=== PATIENT | female | born 1975 | race Caucasian/White ===

== ENCOUNTER 2019-11-21 14:04 | Outpatient (CLI) | payer BC, SELFPAY ==
--- NOTE | ~2019-11-21 | US_ITS ---
US thyroid INDICATION: History of papillary adenocarcinoma the thyroid gland TECHNIQUE: Real-time sonographic images of the thyroid gland were obtained. COMPARISON: Her son dated 07/07/2018 FINDINGS: There is residual thyroid tissue in the left thyroid bed measuring 2.3 x 0.6 x 0.9 cm. Ther e is a small hypoechoic mass in the left lobe measuring 1 mm, likely benign. There is normal echotext ure and echogenicity throughout the thyroid gland. No discrete nodules identified. Normal vascular f low is present. IMPRESSION: 1. Residual left thyroid tissue with 1 mm hypoechoic mass, likely of no clinical significance. Reviewed, dictated and finalized at location A. IMPRESSION: 1. Residual left thyroid tissue with 1 mm hypoechoic mass, likely of no clinic al significance.
== END 2019-11-21 14:05 | disposition home or self-care (01) ==
PROVIDERS: PCP Family Medicine; Visit Provider Internal Medicine Endocrinology, Diabetes & Metabolism
DX: Z12.31 Encounter for screening mammogram for malignant neoplasm of breast (principal); Z85.850 Personal history of malignant neoplasm of thyroid
CPT/HCPCS: 76536

== ENCOUNTER 2019-12-05 08:28 | Outpatient (CLI) | payer BC, SELFPAY ==
--- NOTE | ~2019-12-05 | MM_ITS ---
EXAMINATION: MM screening marlys BI w wilfredo HISTORY: Screening mammogram TECHNIQUE: Craniocaudal and mediolateral oblique 3-D tomosynthesis images were obtained and synthetic 2-D images were generated. CAD analysis was submitted and interpreted. COMPARISON: 09/24/2017 BREAST PARENCHYMAL COMPOSITION: There are scattered areas of fibroglandular density. FINDINGS: There is no evidence of suspicious mass, calcification, or architectural distortion to sugg est malignancy in either breast. There has been no suspicious interval change. IMPRESSION: 1. No mammographic evidence of malignancy. 2. Recommend routine screening mammography in one year. BI-RADS Category 1: Negative Reviewed, dictated and finalized at location A.
== END 2019-12-05 08:29 | disposition home or self-care (01) ==
PROVIDERS: PCP Family Medicine; Visit Provider Nurse Practitioner
DX: Z12.31 Encounter for screening mammogram for malignant neoplasm of breast (principal)
CPT/HCPCS: 77063; 77067

== ENCOUNTER 2020-11-02 09:49 | Outpatient (CLI) | payer BC, SELFPAY ==
--- NOTE | ~2020-11-02 | US_ITS ---
US soft tissue head and neck 11/02/2020 10:38 Indication: Generalized lymph node enlargement. Procedure: High-resolution ultrasound of the head and neck Comparison: Ultrasound dated 11/21/2019 Findings: There are multiple lymph nodes in of the neck, most of which retain their normal fatty hilu m. Largest mass on the right measures 2 x 1.8 x 0.6 cm without a normal fatty hilum, possibly patholo gic lymph node. There are multiple normal-appearing left neck lymph nodes with normal fatty hilum. Th ere is an abnormal mass in the left neck with partial effacement of the fatty hilum measuring 2 cm ma ximum dimension. There is another pathologic appearing mass measuring 1.6 cm maximum dimension with c omplete effacement of the fatty hilum. Impression: 1: Cervical lymphadenopathy, a few of the lymph nodes having abnormal appearance with effacement of t he fatty hilum. Recommend further evaluation with contrast-enhanced CT neck. Reviewed, dictated and finalized at location B. Impression: 1: Cervical lymphadenopathy, a few of the lymph nodes having abnormal appearanc e with effacement of the fatty hilum. Recommend further evaluation with contras t-enhanced CT neck.
== END 2020-11-02 09:50 | disposition home or self-care (01) ==
LOC: ANHIMG 09:52
PROVIDERS: PCP Family Medicine; Visit Provider Physician Assistant Medical
DX: R59.1 Generalized enlarged lymph nodes (principal)
CPT/HCPCS: 76536

== ENCOUNTER 2020-11-08 13:39 | Outpatient (CLI) | payer BC, SELFPAY ==
--- NOTE | ~2020-11-08 | CT_ITS ---
EXAMINATION: CT soft tissue neck w con DATE: 11/08/2020 14:39 INDICATION: Generalized enlarged lymph nodes. TECHNIQUE: Computed tomography (CT) of the neck was performed with 75 mL Omnipaque-350 intravenous co ntrast. Automated exposure control and iterative reconstruction technique were employed. The dose-ijeoma gth product was 563.00 mGy-cm. COMPARISON: Ultrasound 11/02/2020 FINDINGS: The visualized portions of the lung apices demonstrate a 4 mm nodule in right upper lobe, l ikely benign. There is a mucous retention cyst in left maxillary sinus. There are no pathologically e nlarged lymph nodes. There is mild cervical spondylosis. IMPRESSION: 1. No lymphadenopathy. Reviewed, dictated and finalized at location A. IMPRESSION: 1. No lymphadenopathy.
[2020-11-08 14:26] LABS: Estimated Glomerular Filt Rate > 60
== END 2020-11-08 13:40 | disposition home or self-care (01) ==
PROVIDERS: PCP Family Medicine; Visit Provider Physician Assistant Medical
DX: C73 Malignant neoplasm of thyroid gland (principal); R59.1 Generalized enlarged lymph nodes
CPT/HCPCS: 70491; Q9967

== ENCOUNTER 2021-03-10 01:08 | Day surgery (SDC) | payer BC, SELFPAY ==
[2021-02-20 11:21] VITALS: BMI 31.6
--- NOTE | 2021-03-07 15:38 | PM.HPGS ---
History of Present Illness History of Present Illness Consent: Risks, benefits, and alternatives have been discussed and questions answered. Patient agrees to proceed with procedure. Chief complaint: neoplasm screening Narrative: Quita Mtz is a 45 year old female was referred for colon cancer screening. Review of Systems Review of Systems: All systems reviewed & are unremarkable except as noted in HPI and below PMFSH Past Medical History Medical History BMI 29.0-29.9,adult Family History Family History Mother Family history of thyroid disease Hypertension Father Family history of mental disorder Family history of heart disease in male family member before age 55 Depression Family history of migraine headaches Hypertension Asthma Family history of chronic obstructive pulmonary disease Family history of coronary artery disease Family history of atrial fibrillation Family history of congestive heart failure Other Cerebrovascular accident Diabetes mellitus Social History Social History Smoking status: Never smoker Second hand tobacco smoke exposure: No Alcohol intake: former Substance use: never Substance use type: does not use Living arrangements: with family Spiritual care concerns: No Meds Home Medications and Allergies Home Medications Medication Instructions Recorded Confirmed Type lisinopril 5 mg tablet 5 mg PO DAILY #90 tablet 02/20/20 03/10/21 Rx buspirone 10 mg tablet 10 mg PO BID #180 tablet 03/19/20 03/10/21 Rx bupropion HCl 200 mg tablet,12 hr See Rx Instructions .ROUTE 01/13/21 03/10/21 Rx sustained-release .COMPLEX #180 each fluoxetine 20 mg capsule See Rx Instructions .ROUTE 01/13/21 03/10/21 Rx .COMPLEX #90 cap cholecalciferol (vitamin D3) 150 mcg PO DAILY 02/20/21 03/10/21 History [Vitamin D3] cyanocobalamin (vitamin B-12) 1,000 mcg SUBLINGUAL DAILY 02/20/21 03/10/21 History [Vitamin B-12] levothyroxine [Tirosint] 175 mcg PO DAILY 02/20/21 03/10/21 History Allergies Allergy/AdvReac Type Severity Reaction Status Date / Time Penicillins Allergy Severe Rash Verified 03/10/21 10:16 Exam Const: General: alert Orientation/consciousness: patient oriented x3 Resp: Auscultation: clear to auscultation bilaterally Cardio: Rhythm: regular rhythm GI: GI Palp: Yes Soft to palpation and No Tenderness to palpation present (GI) Neuro: General: patient oriented x3 Assessment and Plan Assessment and plan (1) Colon cancer screening: Code(s): Z12.11 - Encounter for screening for malignant neoplasm of colon Status: Acute Assessment and Plan: Colonoscopy with possible biopsy or polypectomy or cautery or injection of substances.
[2021-03-10 10:17] VITALS: BP 134/79; PULSE 116; RESP 18; TEMP 37.1; O2SAT 97; BMI 31.5
[2021-03-10] MEDS: LACTATED RINGERS 1,000 ML 150 ML IV CONT (10:20)
--- NOTE | 2021-03-10 11:13 | WPDANESEPPF ---
Anes - Initial Pre Proc Eval Procedure: Operation Date: 03/10/21 11:15 Proposed Procedures p Screening Colonoscopy - Don Mukherjee MD Date/Time: 03/10/21 11:13 Surgeon: Don Mukherjee MD Pre Op Diagnosis: neoplasm screening Patient Data Age: 45 Gender: F Height: 1.65 m Weight: 86 kg Last Vital Signs Temp 98.7 F 03/10/21 10:17 Pulse 116 H 03/10/21 10:17 Resp 18 03/10/21 10:17 BP 134/79 03/10/21 10:17 Pulse Ox 97 03/10/21 10:17 Allergies Allergy/AdvReac Type Severity Reaction Status Date / Time Penicillins Allergy Severe Rash Verified 03/10/21 10:16 Home Medications Medication Instructions Recorded Confirmed Type lisinopril 5 mg tablet 5 mg PO DAILY #90 tablet 02/20/20 03/10/21 Rx buspirone 10 mg tablet 10 mg PO BID #180 tablet 03/19/20 03/10/21 Rx bupropion HCl 200 mg tablet,12 hr See Rx Instructions .ROUTE 01/13/21 03/10/21 Rx sustained-release .COMPLEX #180 each fluoxetine 20 mg capsule See Rx Instructions .ROUTE 01/13/21 03/10/21 Rx .COMPLEX #90 cap cholecalciferol (vitamin D3) 150 mcg PO DAILY 02/20/21 03/10/21 History [Vitamin D3] cyanocobalamin (vitamin B-12) 1,000 mcg SUBLINGUAL DAILY 02/20/21 03/10/21 History [Vitamin B-12] levothyroxine [Tirosint] 175 mcg PO DAILY 02/20/21 03/10/21 History Patient hx anesthesia problems: none Family hx anesthesia problems: none Results Review: All pre-operative results and documents have been reviewed as part of the pre-operative evaluation. [facility] Past Medical History Medical History BMI 29.0-29.9,adult Family History Family History Mother Family history of thyroid disease Hypertension Father Family history of mental disorder Family history of heart disease in male family member before age 55 Depression Family history of migraine headaches Hypertension Asthma Family history of chronic obstructive pulmonary disease Family history of coronary artery disease Family history of atrial fibrillation Family history of congestive heart failure Other Cerebrovascular accident Diabetes mellitus Social History Social History Smoking status: Never smoker Second hand tobacco smoke exposure: No Alcohol intake: former Substance use: never Substance use type: does not use Living arrangements: with family Spiritual care concerns: No Anes - Eval Final PreProcedure Day of Procedure 03/10/21 11:13 Patient weight: obese Heart: regular rate and rhythm Lungs: clear to auscultation Airway: Mallampati scale class II Neurological: alert and oriented Last oral intake: >/= 8 hours ASA classification: III Emergent: no Anesthetic plan: proceed Anesthesia type and monitoring: general GIVS and standard monitoring Results Review: All pre-operative results and documents have been reviewed as part of the pre-operative evaluation. Informed Consent: The patient's anesthetic plan and its attendant risks and benefits were discussed with the patient/family/POA. Questions were solicited and answers provided to the satisfaction of the patient/family/POA.
[2021-03-10 11:40] VITALS: BP 120/65; PULSE 92; RESP 18; O2SAT 94
[2021-03-10 11:50] VITALS: BP 111/67; PULSE 91; RESP 21; O2SAT 96
[2021-03-10 12:00] VITALS: BP 112/78; PULSE 86; RESP 16; O2SAT 97
== END 2021-03-10 12:07 | disposition home or self-care (01) ==
PROVIDERS: PCP Family Medicine; Referring Provider Obstetrics & Gynecology Gynecology; Visit Provider Internal Medicine Gastroenterology
PROC: 0DJD8ZZ Inspection of Lower Intestinal Tract, Via Natural or Artificial Opening Endoscopic (ICD-10-PCS; CPT 45378; principal; 2021-03-10 11:15)
DX: Z12.11 Encounter for screening for malignant neoplasm of colon (principal); E66.9 Obesity, unspecified; Z68.31 Body mass index [BMI] 31.0-31.9, adult
CPT/HCPCS: 45378; J2001; J2704; J7120

== ENCOUNTER 2021-05-24 10:33 | Outpatient (CLI) | payer BC, SELFPAY ==
--- NOTE | ~2021-05-24 | MM_ITS ---
EXAMINATION: MM screening marlys BI w wilfredo HISTORY: Screening TECHNIQUE: Craniocaudal and mediolateral oblique 3-D tomosynthesis images were obtained and synthetic 2-D images were generated. CAD analysis was submitted and interpreted. COMPARISON: Comparison to multiple prior studies sequentially, with oldest reviewed study dated 09/24. BREAST PARENCHYMAL COMPOSITION: There are scattered areas of fibroglandular density. FINDINGS: There is no evidence of suspicious mass, calcification, or architectural distortion to sugg est malignancy in either breast. There has been no suspicious interval change. IMPRESSION: 1. No mammographic evidence of malignancy. 2. Recommend routine screening mammography in one year. BI-RADS Category 1: Negative Reviewed, dictated and finalized at location A. FIER
== END 2021-05-24 10:34 | disposition home or self-care (01) ==
LOC: ANHIMG 10:34
PROVIDERS: PCP Family Medicine; Visit Provider Nurse Practitioner
DX: Z12.31 Encounter for screening mammogram for malignant neoplasm of breast (principal)
CPT/HCPCS: 77063; 77067

== ENCOUNTER 2021-06-13 17:52 | Emergency (ER) | payer BC, SELFPAY ==
[2021-06-13 17:58] VITALS: BP 129/77; PULSE 93; RESP 16; TEMP 36.8; O2SAT 100
--- NOTE | 2021-06-13 18:12 | ED.FEMALEGU ---
HPI - Female Genitourinary General Chief complaint: Urogenital-Female Stated complaint: uti Time Seen by Provider: 06/13/21 18:05 Source: patient, RN notes reviewed and old records reviewed Mode of arrival: ambulatory Limitations: no limitations History of Present Illness HPI Narrative: 45 [facility] complaints of burning with urination, pressure in perineal region, feels like she can't fully empty her bladder since Wednesday with some right mid abdomen/side discomfort also. Patient denies any fevers, chills or sweats, no nausea or vomiting or any diarrhea. Patient denies any flank pain or any pain in her right lower abdominal area. Patient reports that she has not taken any AZO for her symptoms of burning, has taken Ibuprofen for her discomfort. Patient denies any vaginal discharge or itching, denies any concern for exposure to STD's, has noted some blood on tissue after urination. MD elicited complaint: dysuria Related Data Home Medications Medication Instructions Recorded Confirmed levothyroxine [Tirosint] 175 mcg PO DAILY 02/20/21 06/13/21 ferrous sulfate [FeroSul] 325 mg PO DAILY 06/13/21 06/13/21 levonorgestrel [Mirena] See Rx Instructions .ROUTE .COMPLEX 06/13/21 06/13/21 Allergies Allergy/AdvReac Type Severity Reaction Status Date / Time Penicillins Allergy Severe Rash Verified 06/13/21 08:18 Review of Systems Review of Systems: CONSTITUTIONAL: Denies fever, chills, or sweats. EYES: Denies visual changes, redness, or discharge. ENT: Denies rhinorrhea, congestion, sore throat, or otalgia. CARDIOVASCULAR: Denies chest pain, palpitations, or edema. RESPIRATORY: Denies cough or dyspnea. GASTROINTESTINAL: Reports right mid abdomen/side pain , no nausea, vomiting, or diarrhea. GENITOURINARY: Positive for dysuria or hematuria. SKIN: Denies rash or itching. MUSCULOSKELETAL: Denies back pain, joint pain, or myalgia. NEUROLOGIC: Denies headache, numbness, or weakness. PSYCHIATRIC: Positive for history of anxiety or depression. All systems reviewed & are unremarkable except as noted in HPI and below PMFSH Past Medical History Medical History (Updated 06/13/21 @ 18:48 by Virginia Oneill NP) Anxiety and depression BMI 29.0-29.9,adult BMI 30.0-30.9,adult Essential hypertension Family history of GERD Postoperative hypothyroidism Surgical History Surgical History (Updated 06/13/21 @ 18:39 by Virginia Oneill NP) H/O total thyroidectomy for cancer with radiation therapy Family History Family History Mother Family history of thyroid disease Hypertension Father Family history of mental disorder Family history of heart disease in male family member before age 55 Depression Family history of migraine headaches Hypertension Asthma Family history of chronic obstructive pulmonary disease Family history of coronary artery disease Family history of atrial fibrillation Family history of congestive heart failure Other Cerebrovascular accident Diabetes mellitus Social History Social History Second hand tobacco smoke exposure: No Alcohol intake: former Substance use: never Substance use type: does not use Spiritual care concerns: No Comments At time of signature, agree with nursing past medical, surgical, social and family history. There is no relevant family history pertinent to the presenting complaint Exam Narrative: GENERAL: Well-appearing, well-nourished, and in no acute distress. HEAD: Normocephalic, atraumatic. EYES: PERRLA and EOMI. ENT: Nares clear, no rhinorrhea or epistaxis. Mucous membranes moist.TM's normal throat pink with no lesions or exudates no tonsil enlargement. NECK: Supple. no lymphadenopathy CHEST: Clear to auscultation. No respiratory distress. no cough or tachypnea, SAO2 100% on room air HEART: Regular rate and rhythm. No mur
== END 2021-06-13 18:26 | disposition home or self-care (01) ==
PROVIDERS: Emergency Provider Registered Nurse; PCP Family Medicine
DX: N39.0 Urinary tract infection, site not specified (principal); I10 Essential (primary) hypertension; E89.0 Postprocedural hypothyroidism; Z85.850 Personal history of malignant neoplasm of thyroid; Z92.3 Personal history of irradiation; F41.9 Anxiety disorder, unspecified; F32.A Depression, unspecified
CPT/HCPCS: 81003; 87077; 87086; 87186; 99213; G0463

== ENCOUNTER 2021-09-02 17:46 | Emergency (ER) | payer BC, SELFPAY ==
--- NOTE | 2021-09-02 17:48 | ED.FEMALEGU ---
HPI - Female Genitourinary General Chief complaint: Urogenital-Female Stated complaint: uti complaint Time Seen by Provider: 09/02/21 18:03 Source: patient and RN notes reviewed Mode of arrival: ambulatory Limitations: no limitations History of Present Illness HPI Narrative: 46-year-old female presents with concern for dysuria, frequency, urgency since yesterday. She denies flank pain, hematuria, abdominal pain, nausea, vomiting, general malaise, fever. She reports she had a urinary tract infection in May, otherwise she typically does not get them. She reports she was treated with Macrobid and it worked well for her infection. She reports she took ibuprofen without relief MD elicited complaint: UTI Related Data Home Medications Medication Instructions Recorded Confirmed bupropion HCl 200 mg PO BID 09/02/21 09/02/21 buspirone 10 mg PO TID 09/02/21 09/02/21 fluoxetine 20 mg PO DAILY 09/02/21 09/02/21 levonorgestrel [Mirena] 1 device INTRAUTERINE ONCE 09/02/21 09/02/21 levothyroxine [Unithroid] 175 mcg PO DAILY 09/02/21 09/02/21 Allergies Allergy/AdvReac Type Severity Reaction Status Date / Time Penicillins Allergy Severe Rash Verified 09/02/21 18:02 Review of Systems Review of Systems: CONSTITUTIONAL: Denies malaise, chills, sweats, or fever. CARDIOVASCULAR: Denies chest pain, palpitations, or edema. RESPIRATORY: Denies cough or dyspnea. GASTROINTESTINAL: Denies abdominal pain, nausea, vomiting, diarrhea GENITOURINARY: Reports dysuria, frequency, urgency. Denies suprapubic pressure. Denies flank pain or hematuria. SKIN: Denies rash or itching. MUSCULOSKELETAL: Denies back pain or myalgia. All systems reviewed & are unremarkable except as noted in HPI and below PMFSH Past Medical History Medical History Anxiety and depression BMI 29.0-29.9,adult BMI 30.0-30.9,adult Essential hypertension Family history of GERD Postoperative hypothyroidism Surgical History Surgical History H/O total thyroidectomy for cancer with radiation therapy Family History Family History Mother Family history of thyroid disease Hypertension Diabetes mellitus Father Family history of mental disorder Family history of heart disease in male family member before age 55 Malignant neoplasm of prostate Depression Family history of migraine headaches Hypertension Asthma Family history of chronic obstructive pulmonary disease Family history of coronary artery disease Family history of atrial fibrillation Family history of congestive heart failure Sibling Psoriasis Other Cerebrovascular accident Social History Social History Second hand tobacco smoke exposure: No Alcohol intake: former Substance use: never Substance use type: does not use 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 There is no relevant family history pertinent to the presenting complaint Exam Narrative: GENERAL: Well-appearing, well-nourished, and in no acute distress. HEAD: Normocephalic. EYES: PERRLA, conjunctivae clear. NECK: Supple. No lymphadenopathy CHEST: Clear to auscultation. No respiratory distress. HEART: Regular rate and rhythm. ABDOMEN: Soft, nontender upon palpation, nondistended, normal active bowel sounds, no palpable or pulsatile masses, no guarding. No CVA tenderness SKIN: Warm, dry, no rash. NEURO: Alert and oriented x3. PSYCH: Normal mood and affect Course Course Emergency Course: Patient is aware of diagnosis, understands and agrees to treatment plan. Anticipatory guidance given.
[2021-09-02 17:57] VITALS: BP 123/71; PULSE 84; RESP 18; TEMP 36.8; O2SAT 100
== END 2021-09-02 18:20 | disposition home or self-care (01) ==
PROVIDERS: Emergency Provider Nurse Practitioner; PCP Family Medicine
DX: N30.01 Acute cystitis with hematuria (principal); I10 Essential (primary) hypertension; E89.0 Postprocedural hypothyroidism; Z85.850 Personal history of malignant neoplasm of thyroid; Z92.3 Personal history of irradiation; F41.9 Anxiety disorder, unspecified; F32.A Depression, unspecified
CPT/HCPCS: 81003; 87077; 87086; 87088; 87186; 99213; G0463

== ENCOUNTER 2021-11-20 19:11 | Emergency (ER) | payer BC, SELFPAY ==
[2021-11-20 19:30] VITALS: BP 122/75; PULSE 87; RESP 18; TEMP 37.1; O2SAT 100
--- NOTE | 2021-11-20 19:45 | ED.URI ---
HPI - URI/Sore Throat General Chief Complaint: Upper Respiratory Infection Stated Complaint: congestion,cheek and jaw pain Time Seen by Provider: 11/20/21 19:45 Source: patient, RN notes reviewed and old records reviewed Mode of arrival: ambulatory Limitations: no limitations History of Present Illness HPI Narrative: 46 year old female who presents to [facility] care with complaints of sinus drainage starting on Wednesday which was yellow, then head congestion started to get worse on Wednesday with pain to left ear with muffled hearing. Patient reports that she also has had sinus pain and pressure to the left side of her face and her teeth even hurts. Patient reports that she has had fatigue and body aches.Patient reports that she has been taking Ibuprofen for her discomfort. Patient reports that she has had covid vaccinations and also flu shot. MD elicited complaint: rhinorrhea, nasal congestion, sinus pain and other (ear fullness) Pain scale (0-10): 4 Treatments prior to arrival: ibuprofen Related Data Home Medications Medication Instructions Recorded Confirmed levonorgestrel 20 mcg/24 hours (7 1 device intrauterine ONCE 09/02/21 11/20/21 yrs) 52 mg intrauterine device (Mirena) ferrous sulfate 325 mg (65 mg 325 mg PO DAILY 10/22/21 11/20/21 iron) tablet (Feosol) lisinopril 5 mg tablet 5 mg PO DAILY 10/22/21 11/20/21 Allergies Allergy/AdvReac Type Severity Reaction Status Date / Time Penicillins Allergy Severe Rash Verified 10/22/21 09:26 Review of Systems Review of Systems: CONSTITUTIONAL: Denies fever, chills, or sweats. EYES: Denies visual changes, redness, or discharge. ENT: Positive for rhinorrhea, congestion, no sore throat, left ear fullness and muffled hearing CARDIOVASCULAR: Denies chest pain, palpitations, or edema. RESPIRATORY: Denies cough or dyspnea. GASTROINTESTINAL: Denies abdominal pain, nausea, vomiting, or diarrhea. GENITOURINARY: Denies dysuria or hematuria. SKIN: Denies rash or itching. MUSCULOSKELETAL: Denies back pain, joint pain,body aches NEUROLOGIC: Denies headache, numbness, or weakness. PSYCHIATRIC: Positive for history of anxiety or depression. [facility] Past Medical History Medical History Anxiety and depression BMI 29.0-29.9,adult BMI 30.0-30.9,adult BMI 31.0-31.9,adult Essential hypertension Family history of GERD Postoperative hypothyroidism Surgical History Surgical History H/O total thyroidectomy for cancer with radiation therapy Family History Family History Mother Family history of thyroid disease Hypertension Diabetes mellitus Father Family history of mental disorder Depression Family history of migraine headaches Hypertension Asthma Family history of chronic obstructive pulmonary disease Family history of coronary artery disease Family history of atrial fibrillation Family history of congestive heart failure Family history of heart disease in male family member before age 55 Malignant neoplasm of prostate Sibling Psoriasis Other Cerebrovascular accident Social History Social History Smoking status: Never smoker Second hand tobacco smoke exposure: No Alcohol intake: former Substance use: never Substance use type: does not use 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 There is no relevant family history pertinent to the presenting complaint Exam Narrative: GENERAL: Well-appearing, well-nourished, and in no acute distress. HEAD: Normocephalic, atraumatic. EYES: PERRLA and EOMI. ENT: Nares with
--- NOTE | 2021-11-20 20:32 | ED.URI ---
HPI - URI/Sore Throat General Chief Complaint: Upper Respiratory Infection Stated Complaint: congestion,cheek and jaw pain Time Seen by Provider: 11/20/21 19:45 Source: patient, RN notes reviewed and old records reviewed Mode of arrival: ambulatory Limitations: no limitations History of Present Illness Treatments prior to arrival: ibuprofen Related Data Home Medications Medication Instructions Recorded Confirmed levonorgestrel 20 mcg/24 hours (7 1 device intrauterine ONCE 09/02/21 11/20/21 yrs) 52 mg intrauterine device (Mirena) ferrous sulfate 325 mg (65 mg 325 mg PO DAILY 10/22/21 11/20/21 iron) tablet (Feosol) lisinopril 5 mg tablet 5 mg PO DAILY 10/22/21 11/20/21 Allergies Allergy/AdvReac Type Severity Reaction Status Date / Time Penicillins Allergy Severe Rash Verified 10/22/21 09:26 [facility] Past Medical History Medical History Anxiety and depression BMI 29.0-29.9,adult BMI 30.0-30.9,adult BMI 31.0-31.9,adult Essential hypertension Family history of GERD Postoperative hypothyroidism Surgical History Surgical History H/O total thyroidectomy for cancer with radiation therapy Family History Family History Mother Family history of thyroid disease Hypertension Diabetes mellitus Father Family history of mental disorder Depression Family history of migraine headaches Hypertension Asthma Family history of chronic obstructive pulmonary disease Family history of coronary artery disease Family history of atrial fibrillation Family history of congestive heart failure Family history of heart disease in male family member before age 55 Malignant neoplasm of prostate Sibling Psoriasis Other Cerebrovascular accident Social History Social History Smoking status: Never smoker Second hand tobacco smoke exposure: No Alcohol intake: former Substance use: never Substance use type: does not use 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 Gender identity (if verbalized by the patient): Female Spiritual care concerns: No Course Vital Signs Vital signs: Vital Signs Temperature 37.1 C 11/20/21 19:30 Pulse Rate 87 07/07/22 19:30 Respiratory Rate 18 11/20/21 19:30 Blood Pressure 122/75 11/20/21 19:30 Pulse Oximetry 100 11/20/21 19:30 Oxygen Delivery Room Air 11/20/21 19:30 Temperature 37.1 C 11/20/21 19:30 Pulse Rate 87 11/20/21 19:30 Respiratory Rate 18 11/20/21 19:30 Blood Pressure 122/75 11/20/21 19:30 Pulse Oximetry 100 11/20/21 19:30 Oxygen Delivery Room Air 11/20/21 19:30 Discharge Plan Discharge Clinical Impression: Bacterial sinusitis Patient Disposition: Home, Self-Care Condition: Stable Instructions: Antibiotic Form, Sinusitis (ED) Additional Instructions: Increase fluids especially juices and water Zizs-ezk-qoshgxh cough and cold medicine of your choice for your symptoms Zyrtec Claritin or Blanche daily include Coricidin brand decongestant Tylenol ibuprofen for any fever pain heat to the face 20-30 minutes 4-6 times a day for pain Salt water gargles, throat lozenges or throat sprays as desired Antibiotic as directed--finished the medication If your symptoms persist, change or worsen significantly before you can contact your personal physician then please, without delay, go to the emergency department for further evaluation. Follow-up with PCP in 7-10 days or sooner if needed Prescriptions: New azithromycin 250 mg tablet See Rx Instructions .ROUTE .COMPLEX Qty: 6 0RF Rx Instructions: For 250 mg dose pack: take 500 mg today (day 1), then 250 mg for 4 days (days 2-5) No Action Mirena 20 mcg/24 hours (7 yrs) 52 mg Intrauterine Device
== END 2021-11-20 20:04 | disposition home or self-care (01) ==
PROVIDERS: Emergency Provider Registered Nurse; PCP Family Medicine
DX: J32.9 Chronic sinusitis, unspecified (principal); B96.89 Other specified bacterial agents as the cause of diseases classified elsewhere; I10 Essential (primary) hypertension
CPT/HCPCS: 99213; G0463

== ENCOUNTER 2023-01-25 08:50 | Outpatient (CLI) | payer BC, SELFPAY ==
[2023-01-25 09:21] LABS: Basophils Absolute Auto 0.1 K/mm3 (0.0-0.1); Basophils Percent Auto 0.6 % (0.2-1.2); Eosinophils Absolute Auto 0.3 K/mm3 (0-0.3); Eosinophils Percent Auto 3.4 % (0-4.4); Hematocrit 41.1 % (37.0-47.0); Hemoglobin 13.3 g/dL (12.0-15.0); Immature Granulocyte Absolute 0.05 K/mm3 (0.00-0.031); Immature Granulocyte Percent A 0.6 % (0-0.5); Lymphocytes Percent Auto 17.2 % (18.3-44.2); Mean Corpuscular HGB Conc 32.4 g/dl (32-36); Mean Corpuscular Hemoglobin 30.4 pg (26-34); Mean Corpuscular Volume 93.8 fl (80-100); Mean Platelet Volume 10.2 fl (7.4-10.4); Monocytes Absolute Auto 0.7 K/mm3 (0.1-0.6); Monocytes Percent Auto 8.4 % (2.6-8.5); Neutrophils Absolute Auto 5.7 K/mm3 (1.3-6.7); Neutrophils Percent Auto 69.8 % (45.5-73.1); Platelet Count Result 249 k/mm3 (150-375); Red Blood Count 4.38 M/mm3 (4.2-5.4); Red Cell Distribution Width 12.1 % (11.5-14.5); White Blood Count 8.1 K/mm3 (4.5-10.0)
[2023-01-25 09:31] LABS: Anion Gap 6 mmol/L (8-16); Blood Urea Nitrogen 12 mg/dL (7-17); Calcium 9.6 mg/dL (8.4-10.2); Carbon Dioxide 29 mmol/L (22-30); Chloride 105 mmol/L (98-107); Estimated Glomerular Filt Rate > 60; Glucose 84 mg/dL (65-110); Sodium 140 mmol/L (137-145)
== END 2023-01-25 08:51 | disposition home or self-care (01) ==
PROVIDERS: PCP Family Medicine; Visit Provider Physician Assistant Medical
DX: R53.82 Chronic fatigue, unspecified (principal); I10 Essential (primary) hypertension; E55.9 Vitamin D deficiency, unspecified
CPT/HCPCS: 36415; 80048; 82306; 82607; 85025

== ENCOUNTER 2023-07-25 10:27 | Emergency (ER) | payer BC, SELFPAY ==
--- NOTE | 2023-07-25 10:30 | ED.GENADULT ---
HPI - General Adult General Chief complaint: Upper Respiratory Infection Stated complaint: Congestion,Headache Time Seen by Provider: 07/25/23 10:30 Source: patient Mode of arrival: ambulatory Limitations: no limitations History of Present Illness HPI narrative: 47-year-old female patient presents to the [facility] with complaints of sinus congestion and right-sided facial pain. Patient states she had a cold about a week and half ago which her symptoms have improved but continues to have some congestion and facial pain. Patient states that she has been taking [id number] antihistamines starting yesterday and did take a warm shower today which she thinks did help relieve some of the symptoms. Denies any fevers, body aches or chills. Denies any coughing, chest pain or shortness of breath. Related Data Home Medications Medication Instructions Recorded Confirmed levonorgestrel 21 mcg/24 hours (8 1 device intrauterine ONCE 09/02/21 04/26/23 yrs) 52 mg intrauterine device (Mirena) cholecalciferol (vitamin D3) 50 50 mcg PO DAILY 01/25/23 04/26/23 mcg (2,000 unit) capsule levothyroxine 150 mcg capsule 150 mcg PO DAILY 01/25/23 04/26/23 (Tirosint) levothyroxine 150 mcg capsule mcg PO 07/25/23 (Tirosint) Allergies Allergy/AdvReac Type Severity Reaction Status Date / Time Penicillins Allergy Severe Rash Verified 07/25/23 11:00 Review of Systems Review of Systems: CONSTITUTIONAL: Denies fever, chills, or sweats. EYES: Denies visual changes, redness, or discharge. ENT: Denies rhinorrhea, Positive nasal congestion, denies sore throat, or otalgia. CARDIOVASCULAR: Denies chest pain, palpitations, or edema. RESPIRATORY: Denies cough or dyspnea. GASTROINTESTINAL: Denies abdominal pain, nausea, vomiting, or diarrhea. GENITOURINARY: Denies dysuria or hematuria. SKIN: Denies rash or itching. MUSCULOSKELETAL: Denies back pain, joint pain, or myalgia. NEUROLOGIC: Denies headache, numbness, or weakness. PSYCHIATRIC: Denies anxiety or depression. [facility] Past Medical History Medical History Anxiety and depression BMI 29.0-29.9,adult BMI 30.0-30.9,adult BMI 31.0-31.9,adult Essential hypertension Family history of GERD Postoperative hypothyroidism Surgical History Surgical History H/O total thyroidectomy for cancer with radiation therapy Family History Family History Mother Family history of thyroid disease Hypertension Diabetes mellitus Father Family history of mental disorder Depression Family history of migraine headaches Hypertension Asthma Family history of chronic obstructive pulmonary disease Family history of coronary artery disease Family history of atrial fibrillation Family history of congestive heart failure Family history of heart disease in male family member before age 55 Malignant neoplasm of prostate Sibling Psoriasis Other Cerebrovascular accident Social History Social History Smoking status: Never smoker Second hand tobacco smoke exposure: No Alcohol intake: former Substance use: never Substance use type: does not use Living arrangements: with family Occupation/Education: occupation 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 There is no relevant family history pertinent to the presenting complaint. Exam Narrative: GENERAL: Well-appearing, well-nourished, and in no acute distress. HEAD: Normocephalic, atraumatic. EYES: PERRLA and EOMI. ENT: Nares clear, no rhinorrhea or epistaxis but
[2023-07-25 10:45] VITALS: BP 118/80; PULSE 72; RESP 18; TEMP 36.8; O2SAT 99
== END 2023-07-25 11:25 | disposition home or self-care (01) ==
PROVIDERS: Emergency Provider Nurse Practitioner Family; PCP Family Medicine
DX: J32.9 Chronic sinusitis, unspecified (principal); I10 Essential (primary) hypertension; E89.0 Postprocedural hypothyroidism
CPT/HCPCS: 99213; G0463

== ENCOUNTER 2023-10-16 11:08 | Outpatient (CLI) | payer BC, SELFPAY ==
--- NOTE | ~2023-10-16 | MM_ITS ---
EXAMINATION: MM screening marlys BI w wilfredo HISTORY: Screening mammogram TECHNIQUE: Craniocaudal and mediolateral oblique 3-D tomosynthesis images were obtained and synthetic 2-D images were generated. CAD analysis was submitted and interpreted. COMPARISON: 05/24/2021, 12/05/2019 bilateral screening mammogram examinations BREAST PARENCHYMAL COMPOSITION: The breasts are almost entirely fatty. FINDINGS: There is no evidence of suspicious mass, calcification, or architectural distortion to sugg est malignancy in either breast. There has been no suspicious interval change. IMPRESSION: 1. No mammographic evidence of malignancy. 2. Recommend routine screening mammography in one year. BI-RADS Category 1: Negative Reviewed, dictated and finalized at location A.
== END 2023-10-16 11:09 | disposition home or self-care (01) ==
LOC: ANHIMG 11:10
PROVIDERS: PCP Family Medicine; Visit Provider Advanced Practice Midwife
DX: Z12.31 Encounter for screening mammogram for malignant neoplasm of breast (principal)
CPT/HCPCS: 77063; 77067

== ENCOUNTER 2024-03-04 09:22 | Outpatient (CLI) | payer BC, SELFPAY ==
--- NOTE | ~2024-03-04 | US_ITS ---
EXAMINATION: US pelvic complete INDICATION: IUD Comparison:No prior studies for comparison. TECHNIQUE: Multiple transabdominal sonographic images of the pelvis performed. FINDINGS: The uterus measures 8.6 x 2.9 x 4.7 cm. IUD is present in the endometrium near the fundus. The endometrial complex is not well delineated. The right ovary measures 2.4 x 2.6 x 2 cm and the left ovary measures 2.8 x 1.4 x 2.5 cm. There are small follicles in each ovary. Normal doppler signal in both ovaries. There is no free fluid in the pelvis. There are no abnormal masses seen on either side. IMPRESSION: 1. Unremarkable pelvic ultrasound. IUD present in the endometrium. Reviewed, dictated and finalized at location B.
== END 2024-03-04 09:23 | disposition home or self-care (01) ==
LOC: ANHIMG 09:23
PROVIDERS: PCP Family Medicine; Visit Provider Advanced Practice Midwife
DX: Z30.431 Encounter for routine checking of intrauterine contraceptive device (principal)
CPT/HCPCS: 76856

== ENCOUNTER 2024-04-20 01:24 | Day surgery (SDC) | payer BC, SELFPAY ==
[2024-04-04 11:02] VITALS: BMI 31.4
--- NOTE | 2024-04-19 18:53 | WPDANESEPP ---
Anes - Eval Pre Procedure Procedure: Operation Date: 04/20/24 08:30 Proposed Procedures p Esophagogastroduodenoscopy - Raf Vargas MD Date/Time: 04/19/24 18:53 Surgeon: Sam Pre Op Diagnosis: Aphagia Patient Data Age: 48 Gender: F Height: 1.68 m Weight: 88.5 kg Allergies Allergy/AdvReac Type Severity Reaction Status Date / Time Penicillins Allergy Severe Rash Verified 04/04/24 10:57 Home Medications Medication Instructions Recorded Confirmed Type levonorgestrel 21 mcg/24 hr (up to 1 device intrauterine ONCE 09/02/21 04/04/24 History 8 years) 52 mg intrauterine device (Mirena) cholecalciferol (vitamin D3) 50 50 mcg PO DAILY 01/25/23 04/04/24 History mcg (2,000 unit) capsule ferrous sulfate 325 mg (65 mg 325 mg PO DAILY #90 tabs 07/16/23 04/04/24 Rx iron) tablet (Feosol) levothyroxine 150 mcg capsule 150 mcg PO DAILY #90 caps 10/18/23 04/04/24 Rx (Tirosint) buspirone 10 mg tablet See Rx Instructions .Route 02/04/24 04/04/24 Rx .COMPLEX #270 tabs bupropion HCl 200 mg tablet,12 hr 200 mg PO BID #180 tabs 03/01/24 04/04/24 Rx sustained-release lisinopril 5 mg tablet 5 mg PO DAILY #90 tabs 03/01/24 04/04/24 Rx fluoxetine 60 mg tablet 60 mg PO DAILY #90 tabs 04/10/24 Rx Patient hx anesthesia problems: none Family hx anesthesia problems: none Results Review: All pre-operative results and documents have been reviewed as part of the pre-operative evaluation. [facility] Past Medical History Medical History (Updated 04/19/24 @ 18:54 by Shey Block CRNA) Anxiety and depression BMI 30.0-30.9,adult BMI 31.0-31.9,adult Bronchitis Essential hypertension Family history of GERD Postoperative hypothyroidism Surgical History Surgical History H/O total thyroidectomy for cancer with radiation therapy Family History Family History Mother Family history of thyroid disease Hypertension Diabetes mellitus Father Family history of mental disorder Depression Family history of migraine headaches Hypertension Asthma Family history of chronic obstructive pulmonary disease Family history of coronary artery disease Family history of atrial fibrillation Family history of congestive heart failure Family history of heart disease in male family member before age 55 Malignant neoplasm of prostate Sibling Psoriasis Other Cerebrovascular accident Social History Social History Smoking status: Never smoker Second hand tobacco smoke exposure: No Alcohol intake: former Substance use: never Substance use type: does not use Living arrangements: with family Occupation/Education: occupation 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
[2024-04-20 07:16] VITALS: BP 118/81; PULSE 87; RESP 18; TEMP 36.1; O2SAT 98; BMI 31.4
[2024-04-20 07:20] LABS: BEDSIDEPREGUCG Negative (Negative)
[2024-04-20] MEDS: LACTATED RINGERS 1,000 ML 150 ML IV CONT (07:25)
--- NOTE | 2024-04-20 07:47 | P.PNAN_ITS ---
Anes - Eval Final PreProcedure Day of Procedure 04/20/24 07:47 Patient weight: obese Heart: regular rate and rhythm Lungs: clear to auscultation Airway: Mallampati scale class II Neurological: alert and oriented Last oral intake: >/= 8 hours ASA classification: III Emergent: no Anesthetic plan: proceed Anesthesia type and monitoring: general GIVS and standard monitoring Results Review: All pre-operative results and documents have been reviewed as part of the pre- operative evaluation. Informed Consent: The patient's anesthetic plan and its attendant risks and benefits were discussed with the patient/family/POA. Questions were solicited and answers provided to the satisfaction of the patient/family/POA.
--- NOTE | 2024-04-20 08:30 | PM.IMHP ---
H&P: HPI History of Present Illness Date/Time: 04/20/24 08:30 Chief Complaint: Dysphagia Narrative: the patient has been suffering from dysphagia to solid food for several years. She states that approximately 5 years ago she underwent esophageal dilatation. In addition, she suffers from frequent heartburn, at least 2 episodes per week for which she only takes occasional Tums but never had a formal anti reflux medication regimen. She denies nausea, vomiting or unintentional weight loss. Review of Systems Review of Systems: All systems reviewed & are unremarkable except as noted in HPI and below PMFSH Past Medical History Medical History (Updated 04/19/24 @ 18:54 by Shey Block CRNA) Anxiety and depression BMI 30.0-30.9,adult BMI 31.0-31.9,adult Bronchitis Essential hypertension Family history of GERD Postoperative hypothyroidism Surgical History Surgical History H/O total thyroidectomy for cancer with radiation therapy Family History Family History Mother Family history of thyroid disease Hypertension Diabetes mellitus Father Family history of mental disorder Depression Family history of migraine headaches Hypertension Asthma Family history of chronic obstructive pulmonary disease Family history of coronary artery disease Family history of atrial fibrillation Family history of congestive heart failure Family history of heart disease in male family member before age 55 Malignant neoplasm of prostate Sibling Psoriasis Other Cerebrovascular accident Social History Social History Smoking status: Never smoker Second hand tobacco smoke exposure: No Alcohol intake: former Substance use: never Substance use type: does not use Living arrangements: with family Occupation/Education: occupation 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 Gender identity (if verbalized by the patient): Female Spiritual care concerns: No Meds Home Medications and Allergies Home Medications Medication Instructions Recorded Confirmed Type levonorgestrel 21 mcg/24 hr (up to 1 device intrauterine ONCE 09/02/21 04/20/24 History 8 years) 52 mg intrauterine device (Mirena) cholecalciferol (vitamin D3) 50 50 mcg PO DAILY 01/25/23 04/20/24 History mcg (2,000 unit) capsule ferrous sulfate 325 mg (65 mg 325 mg PO DAILY #90 tabs 07/16/23 04/20/24 Rx iron) tablet (Feosol) levothyroxine 150 mcg capsule 150 mcg PO DAILY #90 caps 10/18/23 04/20/24 Rx (Tirosint) buspirone 10 mg tablet See Rx Instructions .Route 02/04/24 04/20/24 Rx .COMPLEX #270 tabs bupropion HCl 200 mg tablet,12 hr 200 mg PO BID #180 tabs 03/01/24 04/20/24 Rx sustained-release lisinopril 5 mg tablet 5 mg PO DAILY #90 tabs 03/01/24 04/20/24 Rx fluoxetine 60 mg tablet 60 mg PO DAILY #90 tabs 04/10/24 04/20/24 Rx Allergies Allergy/AdvReac Type Severity Reaction Status Date / Time Penicillins Allergy Severe Rash Verified 04/20/24 07:10 Vital Signs Vital Signs - 24 hr 04/20/24 07:16 Temperature 97.0 F L Pulse Rate 87 Respiratory Rate 18 Blood Pressure 118/81 Pulse Oximetry 98 Oxygen Delivery Room Air Exam Const: General: cooperative and healthy appearing Resp: Effort & Inspection: normal respiratory effort and able to speak in complete sentences Auscultation: clear to auscultation bilaterally Cardio: Rate: regular rate Rhythm: regular rhythm GI: Inspection: normal to inspection GI Palp: No No hepatosplenomegaly present Auscultation: normal bowel sounds Rectal Exam: deferred Skin: General skin exam: normal color Psych: Appearance: grossly normal Mental Status: mental status grossly normal Assessment and Plan Assessment and plan (1) Dysphagia: Code(s): R13.10 - Dysphagia, unspecified Status: Acute Assessment and Plan: Differential diagnosis of dysphagia in her particular case include eosinophilic esophagitis versus peptic stricture. Will perform EGD and biopsy and / or esophageal dilation depending on findings. The patient is deemed a good candidate for the procedure. Consent signed. Will proceed.
[2024-04-20 08:59] VITALS: BP 112/75; PULSE 89; RESP 22; O2SAT 95
[2024-04-20 09:09] VITALS: BP 110/71; PULSE 79; RESP 20; O2SAT 97
[2024-04-20 09:19] VITALS: BP 112/72; PULSE 86; RESP 23; O2SAT 97
== END 2024-04-20 09:37 | disposition home or self-care (01) ==
PROVIDERS: Anesthesiology; PCP Family Medicine; Referring Provider Physician Assistant Medical; Visit Provider Internal Medicine Gastroenterology
PROC: 0DJ08ZZ Inspection of Upper Intestinal Tract, Via Natural or Artificial Opening Endoscopic (ICD-10-PCS; CPT 43235; principal; 2024-04-20 08:30)
DX: K22.2 Esophageal obstruction (principal); K29.81 Duodenitis with bleeding; K44.9 Diaphragmatic hernia without obstruction or gangrene; I10 Essential (primary) hypertension; E89.0 Postprocedural hypothyroidism; F41.8 Other specified anxiety disorders; Z85.850 Personal history of malignant neoplasm of thyroid; Z92.3 Personal history of irradiation; E66.9 Obesity, unspecified; Z68.31 Body mass index [BMI] 31.0-31.9, adult
CPT/HCPCS: 43249; 43239; 88305; C1726; J2003; J2704; J7120

== ENCOUNTER 2024-07-10 13:55 | Emergency (ER) | payer BC, SELFPAY ==
[2024-07-10 14:06] VITALS: BP 126/69; PULSE 118; RESP 18; TEMP 37.2; O2SAT 97
[2024-07-10 14:46] LABS: EDCOVIDSCREEN Negative (Negative); EDINFLUASCREEN Negative (Negative); EDINFLUBSCREEN Negative (Negative)
--- NOTE | 2024-07-10 14:50 | ED.URI ---
HPI - URI/Sore Throat General Chief Complaint: Upper Respiratory Infection Stated Complaint: FLU LIKE Source: patient, RN notes reviewed and old records reviewed Mode of arrival: ambulatory Limitations: no limitations History of Present Illness HPI Narrative: 48-year-old female presents to the [facility] with flu-like symptoms, body aches, fatigue. States she did has some abdominal discomfort and nausea through the night, with body aches started 830 this morning, 6 hours. Did take 400 mg of ibuprofen. Patient reports the abdominal discomfort in the nausea is better, denies any on exam Onset (ago): hour(s) (6) Treatments prior to arrival: ibuprofen Related Data Home Medications ?Medication ?Instructions ?Recorded ?Confirmed ?Last Taken ?Type levonorgestrel (Mirena) 1 device intrauterine ONCE 09/02/21 04/20/24 04/20/24 History Allergies Allergy/AdvReac Type Severity Reaction Status Date / Time Penicillins Allergy Severe Rash Verified 07/10/24 14:25 Review of Systems Review of Systems: All systems reviewed & are unremarkable except as noted in HPI and below Constitutional: Constitutional: Reports as per HPI, Reports body ache(s) and Reports fatigue ENT: Reports system reviewed and no additional complaints, except as documented Cardiovascular: Cardiovascular: Reports no additional cardiovascular complaints, Denies chest pain and Denies dyspnea Respiratory: Respiratory: Reports no additional respiratory complaints, Denies chest congestion, Denies cough and Denies dyspnea Musculoskeletal: Musculoskeletal: Reports no additional musculoskeletal complaints Integumentary/Breasts: Skin/Breast: Reports system reviewed and no additional complaints, except as docu PMFSH Past Medical History Medical History Bronchitis BMI 31.0-31.9,adult Family history of GERD BMI 30.0-30.9,adult Anxiety and depression Postoperative hypothyroidism Essential hypertension Surgical History Surgical History H/O total thyroidectomy for cancer with radiation therapy Family History Family History Mother Family history of thyroid disease Hypertension Diabetes mellitus Father Family history of mental disorder Depression Family history of migraine headaches Hypertension Asthma Family history of chronic obstructive pulmonary disease Family history of coronary artery disease Family history of atrial fibrillation Family history of congestive heart failure Family history of heart disease in male family member before age 55 Malignant neoplasm of prostate Sibling Psoriasis Other Cerebrovascular accident Social History Social History Smoking status: Never smoker Second hand tobacco smoke exposure: No Alcohol intake: former Substance use: never Substance use type: does not use Living arrangements: with family Occupation/Education: occupation 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 There is no relevant family history pertinent to the patient complaint. Exam Const: General: cooperative, no acute distress, well developed, alert, tired appearing, uncomfortable and well nourished Nutritional Appearance: well nourished Orientation/consciousness: patient oriented x3 Limitations: no limitations HENMT: Head: normal to inspection Ears: hearing grossly normal bilaterally, external ears normal, TM's normal bilaterally, EAC's normal, mastoids normal and no periauricular adenopathy Mouth: Yes Normal oral and palatal mucosa present, Yes lip normal, Yes tongue normal and Yes moist mucous membranes Throat: posterior oropharynx normal, uvula midline and no uvular edema Eyes: General: appearance normal, both eyes and all related structures Alignment and Position: alignment normal Neck: Neck: normal visual inspection, full ROM, no lymphadenopathy and no meningeal signs Chest: Chest palpation & inspection: normal inspection of the chest Resp: Effort & Inspection: normal respiratory effort and able to speak in complete sentences Auscultation: clear to auscultation bilaterally, no crackles, no rales, no rhonchi and no wheezes Cardio: Rate: regular rate Skin: General skin exam: normal color and no rashes or lesions noted Neuro: General: patient oriented x3, gait normal, moves all extremities and no meningeal signs Cognition (Neuro): normal cognition Speech: normal speech Gait exam (Neuro): Normal gait present Extrem: General: normal to inspection, full ROM, capillary refill normal and normal gait Psych: Appearance: grossly normal and well kempt Mental Status: mental status grossly normal Speech and movement: Normal speech and movement present and Clear speech present Affect: normal affect Attitude: cooperative Course Course Level of Care: Express Care Visit Vital Signs Vital signs: Vital Signs Temperature 99 F 07/10/24 14:06 Pulse Rate 118 H 07/10/24 14:06 Respiratory Rate 18 07/10/24 14:06 Blood Pressure 126/69 07/10/24 14:06 Pulse Oximetry 97 07/10/24 14:06 Oxygen Delivery Room Air 07/10/24 14:06 Temperature 99 F 07/10/24 14:06 Pulse Rate 118 H 07/10/24 14:06 Respiratory Rate 18 07/10/24 14:06 Blood Pressure 126/69 07/10/24 14:06 Pulse Oximetry 97 07/10/24 14:06 Oxygen Delivery Room Air 07/10/24 14:06 Reviewed MDM - URI/Sore Throat MDM Narrative Medical decision making narrative: Patient sitting exam room. Nontoxic, vitals stable. Patient presents with 6 hour history of URI symptoms. Most likely influenza however may be too early to test. Discussed conservative treatment, [id number] products. Patient is appropriate for outpatient treatment and follow-up Discharge instructions reviewed with patient, as well as provided in writing per nursing staff. The instructions also include specific and strict return/GO TO THE ER as well as f/u information. All questions have been answered, and the patient deny any further questions with discharge and discharge plan. Some parts of this dictation were generated by voice recognition software and may contain typographical and/or grammatical inaccuracies. Differential Diagnosis Differential diagnosis: Likely upper respiratory infection, otitis media, sinusitis, viral infection, bronchitis, influenza and pharyngitis Lab Data Labs: Lab Results 07/10/24 Range/Units 14:45 POC Influenza A Ag Negative (Negative) POC Influenza B Ag Negative (Negative) POC SARS CoV-2 Ag Negative (Negative) Reviewed Critical Care Time Critical Care Time Critical Care Time: No Discharge Plan Discharge Clinical Impression: Influenza-like illness Patient Disposition: Home, Self-Care Condition: Stable Instructions: Antibiotic Form, Influenza (ED) Additional Instructions: Your rapid COVID test were negative Your rapid flu test was negative Due to symptoms just starting this morning it is recommended you do an at home flu COVID test at the 24-48 hour driss Your symptoms are likely due to a viral illness, which is not treated with antibiotics. Typically viral infections last 7-10 days, can linger for couple of weeks. It is very important to treat your symptoms. Drink plenty of water, Gatorade, Pedialyte, ice pops or Jell-O. -Alternate Tylenol and Motrin per package directions for fever or pain. You can alternate every 4 hours -Antihistamine medication such as Zyrtec/Claritin/Blanche during the day can help improve symptoms. -doing daily nasal irrigations can help relieve pressure your sinuses. Things like a Neti pot -Use Flonase twice a day for 5 days then daily to help reduce the inflammation and dry up your sinuses. -You can also use Mucinex. Be sure to drink plenty of water with this medication at least 8 ounces with every dose and it is important to drink 8 to 10 glasses of water per day. Water is a natural decongestant -Eat and drink things that are easy to swallow, like tea or soup, or popsicles. -Oral rinses such as: Salt water gargles and/or may use topical anesthetic (eg. Chloraseptic spray) or lozenges to relieve dryness or throat pain). -Frequent hand washing or hand telephoto installer is one of the best ways to prevent spread of infection. -Using a vaporizer or humidifier at night will also help thin secretions and help with coughing up phlegm. -Follow up with primary care provider in 7-10 days if condition is not improving - For new or worsening symptoms go directly to the nearest ER Patient Language: Ecuadorean Prescriptions: No Action Mirena 20 mcg/24 hours (7 yrs) 52 mg Intrauterine Device 1 device INTRAUTERINE ONCE levothyroxine [Tirosint] 150 mcg capsule 150 mcg PO DAILY Qty: 90 3RF lisinopril 5 mg tablet 5 mg PO DAILY Qty: 90 1RF bupropion HCl 200 mg tablet sustained-release 12 hr 200 mg PO BID Qty: 180 3RF fluoxetine 60 mg tablet 60 mg PO DAILY Qty: 90 2RF buspirone 10 mg tablet See Rx Instructions .ROUTE .COMPLEX Qty: 270 0RF Dose Instruction: TAKE 1 & 1/2 (ONE & ONE-HALF) TABLETS BY MOUTH IN THE MORNING AND 1 AT BEDTIME Rx Instructions: TAKE 1 & 1/2 (ONE & ONE-HALF) TABLETS BY MOUTH IN THE MORNING AND 1 AT BEDTIME pantoprazole 40 mg tablet,delayed release (DR/EC) 40 mg PO QAM 56 Days Qty: 56 0RF ferrous sulfate [Feosol] 325 mg (65 mg iron) tablet 325 mg PO DAILY Qty: 90 3RF Follow-up/Referrals: Dami Berrios MD [Primary Care Provider] - 2 Weeks ([facility] follow-up) Stand Alone Forms: Work/School Release IP Time of Disposition: 14:52
--- OUTSIDE RECORDS SUMMARY | 2024-07-10 16:04 | XMS_ITS | Clinical Summary ---
Author Organization [facility] Address [address] [place] [address] Care Team Providers Care Boot Repairer Name Role Phone Dami Berrios MD Primary Care Provider [phone] Allergies Active Allergy Reactions Criticality Noted Date Comments Penicillins Rash Medium 07/16/2010 Medications buPROPion SR (WELLBUTRIN SR) 200 mg 12 hr tablet Take 1 tablet (200 mg total) by mouth 2 (two) times a day 09/23/2020 Active lisinopriL (PRINIVIL,ZESTR IL) 5 mg tablet Take 1 tablet (5 mg total) by mouth daily 08/25/2020 Active busPIRone (BUSPAR) 10 mg tablet TAKE ONE AND ONE HALF TABLETS BY MOUTH EVERY MORNING AND ONE TABLET IN THE EVENING 10/29/2020 Active FLUoxetine (PROzac) 20 mg capsule Take 1 capsule (20 mg total) by mouth daily 09/23/2020 Active cholecalciferol (VITAMIN D-3) 2000 unit capsule Vitamin D3 50 mcg (2,000 unit) capsule Take 1 capsule every day by oral route. 10/12/2014 Active ALPRAZolam (XANAX) 0.25 mg tablet Take 1 tablet (0.25 mg total) by mouth nightly as needed Active FeroSuL 325 mg (65 mg iron) tablet Take 1 tablet (325 mg total) by mouth daily Active pantoprazole DR (PROTONIX) 40 mg EC tablet Take 1 tablet (40 mg total) by mouth daily 04/20/2024 Active levothyroxine (Synthroid) 150 mcg tablet Take 1 tablet (150 mcg total) by mouth daily 90 tablet 3 06/02/2024 01/17/202 6 Active Active Problems Problem Noted Date Diagnosed Date Post-surgical hypothyroidism 05/29/2024 Assessment & Plan (05/29/2024 2:18 PM COMPRESSOR ASSEMBLER): Switch to synthroid 150 mcg every day (from Tirosent) Check TFT now then on follow up in 2-3 months given change in formula Hot flashes due to menopause 12/20/2023 Assessment & Plan (12/20/2023 3:06 PM CDT): She does note some increased menopausal symptoms - fatigue, malaise, hot flashes (multiple episodes per day). She is . Not on contraceptives. Denies vaginal symptoms (dysuria, dryness, dysparaneua). Already on fluoxetine, buspar, wellbutrin for other indications. Discussed estrogen replacement therapies - patient would prefer to discuss this with endocrinology when she establishes care in case of any symptom overlap with hypo- of hyper- thyroidism and/or medication interactions. Agree, will defer HRT discussion to endocrine. Anxiety 11/08/2020 Depressive disorder 11/08/2020 Psoriasis 11/08/2020 Lattice degeneration 11/08/2020 Hypothyroidism 02/28/2015 Assessment & Plan (12/20/2023 3:02 PM CDT): Iatrogenic hypothyroidism 2/2 thyroidectomy for papillary thyroid cancer (dx 1999). Stable symptoms on Tirosint 150mcg Daily. Reports last TSH 0.04. Essential (primary) hypertension 03/31/2011 Overview (12/20/2023): BP in clinic today 116/77 on Lisinopril 5mg. Continue. Assessment & Plan (12/20/2023 3:01 PM CDT): Continue Lisinopril 5mg. Malignant neoplasm of thyroid gland 03/31/2011 Assessment & Plan (05/29/2024 2:21 PM COMPRESSOR ASSEMBLER): No evidence of tumor recurrence on biochemical and radiological data so far followed locally Will plan follow-up with thyroid function test with a TSH goal lower normal. Biochemical evaluation with thyroid tumor markers. We will also obtain neck ultrasound for evaluation of the neck. If above are in acceptable range, will plan follow-up on yearly basis Assessment & Plan (12/20/2023 3:04 PM CDT): Patient w/ prior diagnosis papillary thyroid carcinoma s/p thyroidectomy, radioactive iodine x2, pt reports hx of short recurrence in cervical LN s/p LND. Initial diagnosis in 1999. Has been on stable doses of thyroid replacement, most recently Tirosint 150mcg qD. Had followed with [facility] endocrinology (Dr. Ines Mc) but this provider retired and there is now no qualified barrel driller in her area. She came to this visit today to obtain a referral to endocrinology, and requested Dr. Camara if available. She prefers to continue her primary care at her outside PCP as it is closer to home and more convenient for her. - Referral to endocrinology placed today Encounters Date Type Department Care Team Description 05/29/2024 2:30 PM COMPRESSOR ASSEMBLER Lab [facility] [place] - Lab Collection [address] [facility] [address] [place] [address] Post-surgical hypothyroidism; Papillary thyroid carcinoma (HCC); Hot flashes due to menopause 05/29/2024 1:40 PM COMPRESSOR ASSEMBLER Office Visit [facility] Endocrinology Metabolism and Lipid [address] [facility] [facility] [address], [address] [place] [id number] Edwin Hernandez MD Post-surgical hypothyroidism (Primary Dx); Papillary thyroid carcinoma (HCC); Hot flashes due to menopause; Malignant neoplasm of thyroid gland (HCC) from Last 3 Months Surgical History Surgery Date Site/Laterality Comments THYROID SURGERY 05/17/1999 - 05/16/2000 with lymph nodes removed DEEP NECK LYMPH NODE BIOPSY / EXCISION 05/17/2000 - 05/16/2001 Family History Medical History Relation Name Comments hypetensive Brother Heart failure Father Lupus Father Prostate cancer Father hpertensive Father Diabetes Mother thyroid problems Mother Relation Name Status Comments Brother Father Mother Social History Tobacco Use Types Packs/Day Years Used Date Smoking Tobacco: Never Smokeless Tobacco: Never Hunger Vital Sign Answer Date Recorded Within the past 12 months, y ou worried that your food would run out before you got the money to buy more. Never true 12/20/19 24 Within the past 12 months, t he food you bought just didn't last and you didn't have money to get more. Never true 12/20/2023 Comments Unknown Sex and Gender Information Value Date Recorded Sex Assigned at Not on file Legal Sex Female 10:30 AM COMPRESSOR ASSEMBLER Gender Identity Not on file Sexual Orientation Not on file Obstetrics History Last Filed Vital Signs Vital Sign Reading Time Taken Comments Blood Pressure 122/76 05/29/2024 1:10 PM COMPRESSOR ASSEMBLER Pulse 69 05/29/2024 1:10 PM COMPRESSOR ASSEMBLER Temperature 36.9 C (98.4 F) 05/29/2024 1:10 PM COMPRESSOR ASSEMBLER Respiratory Rate 18 05/29/2024 1:10 PM COMPRESSOR ASSEMBLER Oxygen Saturation 97% 12/20/2023 1:51 PM CDT Inhaled Oxygen Concentration - - Weight 87.5 kg (193 lb) 05/29/2024 1:10 PM COMPRESSOR ASSEMBLER Height 166 cm (5' 5.35 ) 05/29/2024 1:10 PM COMPRESSOR ASSEMBLER Body Mass Index 31.77 05/29/2024 1:10 PM COMPRESSOR ASSEMBLER Plan of Treatment Health Maintenance Due Date Last Done Comments Breast Cancer Screening-Mammogram 1974 Cervical Cancer Screening 1974 Colon Cancer Screening-Colonoscopy 1974 Depression Screening 1974 Hepatitis C Screening 1974 Hepatitis B Screening 1992 Regular Well Visit/Exam 18-64 1992 Pneumococcal vaccine <65 (1 of 2 - PCV) 1993 DTaP/Tdap/Td Vaccine (2 - Td or Tdap) 05/17/2021 05/17/2011 Influenza Vaccine (#1) 2024 0, 06/08/2019, 03/23/2018, Additional history exists Procedures Procedure Name Priority Date/Time Associated Diagnosis Comments REFLEX THYROGLOBULIN, TUMOR MARKER, IA, S Routine 05/29/2024 2:16 PM COMPRESSOR ASSEMBLER EGFR Routine 05/29/2024 2:16 PM COMPRESSOR ASSEMBLER Papillary thyroid carcinoma (HCC) FOLLICLE STIMULATING HORMONE Routine 05/29/2024 2:16 PM COMPRESSOR ASSEMBLER Hot flashes due to menopause THYROGLOBULIN REFLEX TO MS OR IA Routine 05/29/2024 2:16 PM COMPRESSOR ASSEMBLER Papillary thyroid carcinoma (HCC) T4, FREE Routine 05/29/2024 2:16 PM COMPRESSOR ASSEMBLER Papillary thyroid carcinoma (HCC) RENAL FUNCTION PANEL Routine 05/29/2024 2:16 PM COMPRESSOR ASSEMBLER Papillary thyroid carcinoma (HCC) TSH Routine 05/29/2024 2:16 PM COMPRESSOR ASSEMBLER Post-surgical hypothyroidism from Last 3 Months Results * Reflex thyroglobulin, tumor marker, IA, S (05/29/2024 2:16 PM COMPRESSOR ASSEMBLER) Thyroglobulin, Tumor Marker <0.1 ng/mL [place] [facility] Comment: REFERENCE VALUE Athyrotic <0.1 Intact Thyroid <=33 Thyroglobulin interp See Footnote AALIYAH TURCIOS Comment: Thyroglobulin (Tg) levels must be interpreted in the context of TSH levels, serial Tg measurements and radioiodine ablation status. Tg levels <0.1 ng/mL in athyrotic individuals on suppressive therapy indicate a minimal risk (<1-2%) of clinically detectable recurrent papillary/follicular thyroid cancer. ADDITIONAL INFORMATION PLEASE NOTE: The given cutoff of <1.8 IU/mL is for the detection of potential thyroglobulin antibody (TgAb) interference in thyroglobulin immunoassays. Thyroglobulin flagging is based on athyrotic reference values. A thyroglobulin antibody (TgAb) reference cutoff of <4.0 IU/mL may be more suitable for the evaluation of autoimmune thyroiditis. The thyroglobulin and thyroglobulin antibody testing methods are immunoenzymatic assays manufactured by [employer] and performed on the [employer] DXI 800. Values obtained from different assay methods or kits may be different and cannot be used interchangeably. The results cannot be interpreted as absolute evidence for the presence or absence of malignant disease. Test Performed by: [facility] [address] [place] [address] [place]: Carolin Mathews Ph.D.; IA# [id number] Blood 05/29/2024 2:16 PM COMPRESSOR ASSEMBLER 05/29/2024 3:55 PM COMPRESSOR ASSEMBLER Edwin Hernandez MD LAB BLOOD ORDERABLES Final Resu lt Performing Organization Address [facility] Co de Phone Number [facility] [place] [address] [facility] * eGFR (05/29/2024 2:16 PM COMPRESSOR ASSEMBLER) eGFR >90 >=60 mL/min/1. 73 m2 Comment: Interpretive Data Reference Interval Normal >/= 90 mL/min/1.73m2 Mildly decreased* 60 - 89 mL/min/1.73m2 Mildly to moderately decreased 45 - 59 mL/min/1.73m2 Moderately to severely decreased 30 - 44 mL/min/1.73m2 Severely decreased 15 - 29 mL/min/1.73m2 Kidney Failure < 15 mL/min/1.73m2 *Relative to young adult level Estimated glomerular filtration rate is determined by the 2020 CKD-EPI equation recommended by the National Kidney Foundation (A Unifying Approach to GFR Estimation: Recommendations of the NKF-ASK Task Force on Reassessing the Inclusion of Race in Diagnosing Kidney Disease, JASN 2020). The CKD-EPI equation should not be used for patients with unstable renal function and has not been validated in children and those over 70. Current interpretive data was last reviewed 2021. Blood 05/29/2024 2:16 PM COMPRESSOR ASSEMBLER 05/29/2024 2:23 PM COMPRESSOR ASSEMBLER Edwin Hernandez MD LAB BLOOD ORDERABLES Final Resu lt Performing Organization Address [facility]/ZIP Co de Phone Number [facility] Department [place] [address] * Thyroglobulin reflex to MS or IA (05/29/2024 2:16 PM COMPRESSOR ASSEMBLER) Anti-thyroglobulin <1.8 <1.8 IUnits/mL [facility] Comment: Thyroglobulin Antibody < 1.8 IU/mL. Thyroglobulin performed by Immunoassay to follow. Test Performed by: [facility] [address] [place] [address] [place]: Carolin Mathews Ph.D.; CLIA# [id number] Blood 05/29/2024 2:16 PM COMPRESSOR ASSEMBLER 05/29/2024 3:55 PM COMPRESSOR ASSEMBLER us Edwin Hernandez MD LAB BLOOD ORDERABLES Final Resu lt Performing Organization Address [facility] Co de Phone Number [facility] [place] [place] [address] [facility] * (ABNORMAL) TSH (05/29/2024 2:16 PM COMPRESSOR ASSEMBLER) Thyroid Stimulating Hormone 0.02(L) 0.30 - 4.20 mcIUnit/mL Blood 05/29/2024 2:16 PM COMPRESSOR ASSEMBLER 05/29/2024 2:23 PM COMPRESSOR ASSEMBLER us Edwin Hernandez MD LAB BLOOD ORDERABLES Final Resu lt Performing Organization Address [facility] Co de Phone Number [facility] [place] [place] [address] * T4, free (05/29/2024 2:16 PM COMPRESSOR ASSEMBLER) Free T4 1.42 0.90 - 1.70 ng/dL Blood 05/29/2024 2:16 PM COMPRESSOR ASSEMBLER 05/29/2024 2:23 PM COMPRESSOR ASSEMBLER us Edwin Hernandez MD LAB BLOOD ORDERABLES Final Resu lt Performing Organization Address City/[facility] Co de Phone Number [facility] [place] [place] [address] * Follicle stimulating hormone (05/29/2024 2:16 PM COMPRESSOR ASSEMBLER) Pathologist [facility] FSH 93.9 IUnits/L Comment: Interpretive Data Male: Adults: 1.5 - 12.4 IUnits/L Female: Follicular: 3.5 - 12.5 IUnits/L Ovulation: 4.7 - 21.5 IUnits/L Luteal: 1.7 - 7.7 IUnits/L Postmenopausal: 25.8 - 134.8 IUnits/L Current interpretive data was last revised 2015. Blood 05/29/2024 2:16 PM COMPRESSOR ASSEMBLER 05/29/2024 2:54 PM COMPRESSOR ASSEMBLER Edwin Hernandez MD LAB BLOOD ORDERABLES Final Resu lt [facility] [address] [facility] [place] [address] * (ABNORMAL) Renal function panel (05/29/2024 2:16 PM COMPRESSOR ASSEMBLER) Pathologist [facility] Sodium 139 135 - 145 mmol/L Potassium, pl 3.9 3.3 - 4.9 mmol/L [facility] Chloride 103 97 - 110 mmol/L [facility] CO2 29 22 - 32 mmol/L [facility] Anion gap 7 2 - 15 mmol/L [facility] BUN 14 6 - 25 mg/dL [facility] Creatinine 0.74 0.60 - 1.10 mg/dL [facility] Glucose 92 70 - 199 mg/dL [facility] Comment: Interpretive Data Fasting glucose >/= 126 mg/dl is diagnostic for diabetes. Fasting is defined as no caloric intake for at least 8 hours. Fasting glucose between 100 mg/dl to 125 mg/dl is diagnostic of prediabetes. In a patient with classic symptoms of hyperglycemia or hyperglycemic crisis, a random glucose >/= 200 mg/dl is diagnostic for diabetes. In the absence of unequivocal hyperglycemia, results should be confirmed by repeat testing. The classification and Diagnosis of Diabetes Diabetes Care 202; 46: S19-S40. Current interpretive data was last revised 2022. Calcium 10.5(H) 8.5 - 10.3 mg/dL [facility] Phosphorus, pl 3.1 2.3 - 4.5 mg/dL [facility] Albumin 4.2 3.5 - 5.0 g/dL [facility] Blood 05/29/2024 2:16 PM COMPRESSOR ASSEMBLER 05/29/2024 2:23 PM COMPRESSOR ASSEMBLER us Edwin Hernandez MD LAB BLOOD ORDERABLES Final Resu lt [facility] [address] [facility] [place] [address] from Last 3 Months Insurance [facility] [employer]AL [facility] [employer] Care Teams Boot Repairer Relationship Specialty Start Date End Date Dami Berrios MD PCP - General Family Medicine 09/06/20
--- OUTSIDE RECORDS SUMMARY | 2024-07-10 16:04 | XMS_ITS | Patient Health Summary ---
Author Organization [facility] Address [address] [place] [address] Care Team Providers Care Music Ministries Director Name Role Phone Dami Berrios MD Primary Care Provider [phone] Note from [facility],non-owned Affiliates and Associated Physician Practices is amultiple site organization consisting of ambulatory clinics and hospital sitesin [place], [place], [place] and [place]. This disclosure is being madepursuant to the Care Everywhere program and may not contain all information available regarding this patient. Last updated 18.[facility] Allergies * Penicillins(Rash) Medications * Be aware that medications may not be up to date on this document. Alwaysverify current medications with the patient. * lisinopril (PRINIVIL;ZESTRIL) 5 MG tablet(Started 12/30/2016) * buPROPion SR 12hr (WELLBUTRIN SR) 200 MG tablet(Started 07/20/2016) Take 200 mg by mouth DAILY. 5 refills left * busPIRone (BUSPAR) 7.5 MG tablet(Started 07/16/2016) Take 7.5 tablets by mouth DAILY. 2 refills left Active Problems Problem Noted Date Diagnosed Date Hypothyroidism 02/28/2015 Malignant neoplasm of thyroid gland 03/31/2011 Major depressive disorder, single episode 2010 Essential (primary) hypertension 03/31/2011 Uncomplicated asthma 03/31/2011 Social History Tobacco Use Types Packs/Day Years Used Date Smoking Tobacco: Never Smokeless Tobacco: Never Alcohol Use Standard Drinks/Week Comments No 0 (1 standard drink = 0.6 oz pur e alcohol) Sex and Gender Information Value Date Recorded Sex Assigned at Not on file Gender Identity Not on file Sexual Orientation Not on file Last Filed Vital Signs Vital Sign Reading Time Taken Comments Blood Pressure 108/78 04/30/2017 9:15 AM SCHOOL BUS AIDE Pulse 92 04/30/2017 9:15 AM SCHOOL BUS AIDE Temperature 36.2 C (97.1 F) 04/30/2017 9:15 AM SCHOOL BUS AIDE Respiratory Rate 18 01/29/2017 8:26 AM CDT Oxygen Saturation 98% 04/30/2017 9:15 AM SCHOOL BUS AIDE Inhaled Oxygen Concentration - - Weight 85.6 kg (188 lb 11.2 oz) 04/30/2017 9:15 AM SCHOOL BUS AIDE Height 167.6 cm (5' 6 ) 04/30/2017 9:15 AM SCHOOL BUS AIDE Body Mass Index 30.46 04/30/2017 9:15 AM SCHOOL BUS AIDE Procedures * THYROGLOBULIN PANEL(Performed 11/13/2017) * TSH(Performed 11/13/2017) * T4 FREE(Performed 11/13/2017) * TSH(Performed 04/30/2017) * T4 FREE(Performed 04/30/2017) * THYROGLOBULIN(Performed 03/26/2017) * TSH+FREE T4 PANEL(Performed 03/26/2017) * THYROGLOBULIN(Performed 01/29/2017) * TSH(Performed 01/29/2017) * T4 FREE(Performed 01/29/2017) * TSH(Performed 09/19/2016) * THYROGLOBULIN(Performed 07/25/2016) * T4 FREE(Performed 07/25/2016) * TSH(Performed 07/25/2016) * LAB HISTORICAL RESULTS-ONBASE(Performed 03/18/2016) * THYROGLOBULIN(Performed 04/04/2011) * TSH(Performed 04/04/2011) * US SOFT TISSUE HEAD NECK(Performed 03/31/2011) * THYROGLOBULIN(Performed 01/23/2011) * TSH(Performed 01/23/2011) Results * (ABNORMAL) THYROGLOBULIN PANEL (11/13/2017) Thyroglobulin Antibody <1 < or = 1 IU/mL [facility] Thyroglobulin <0.1(L) ng/mL [facility] Comment: Reference Range: Intact Thyroid 2.8-40.9 Athyrotic <0.1 Note: Abnormal flagging is based on the reference interval for patients with intact thyroid. This test was performed using the [employer] [place] chemiluminescent method. Values obtained from different assay methods cannot be used interchangeably. Thyroglobulin levels, regardless of value, should not be interpreted as absolute evidence of the presence or absence of disease. REPORT COMMENT: FASTING:YES Test Performed at: [facility] [id number] LANDRY ALATORRE DO,MPH 11/13/2017 11/13/2017 9:4 4 AM CDT Jose Weathers MD LAB - CHEMISTRY UNRULY CARR Performing Organization Address [facility] Co de Phone Number [facility] [phone] [place] [address] * TSH (11/13/2017) Only the most recent of7 resultswithin the time period is included. TSH 0.87 mIU/L [facility] Comment: Reference Range > or = 20 Years 0.40-4.50 Ranges First trimester 0.26-2.66 Second trimester 0.55-2.73 Third trimester 0.43-2.91 Test Performed at: [facility] [id number] LANDRY ALATORRE DO,MPH 11/13/2017 11/13/2017 9:4 4 AM CDT Jose Weathers MD LAB - CHEMISTRY UNRULY CARR Performing Organization Address [facility] de Phone Number [facility] [phone] [place] [address] * T4 FREE (11/13/2017) Only the most recent of4 resultswithin the time period is included. T4 Free 1.1 0.8 - 1.8 ng/dL [facility] Comment: Test Performed at: [facility] [id number] LANDRY ALATORRE DO,MPH 11/13/2017 11/13/2017 9:4 4 AM CDT Jose Weathers MD LAB - CHEMISTRY UNRULY CARR Performing Organization Address [facility] Co de Phone Number [facility] [phone] [place] [address] * (ABNORMAL) TSH+FREE T4 PANEL (03/26/2017 9:14 AM SCHOOL BUS AIDE) TSH 0.26(L) mIU/L [facility] ([facility]) Comment: Reference Range > or = 20 Years 0.40-4.50 Ranges First trimester 0.26-2.66 Second trimester 0.55-2.73 Third trimester 0.43-2.91 T4 Free 1.1 0.8 - 1.8 ng/dL [facility] ([facility]) Comment: Test Performed at: [facility] [id number] [facility] [place] [address] LANDRY ALATORRE DO,MPH 03/26/2017 9:14 AM SCHOOL BUS AIDE 03/26/2017 9:15 AM SCHOOL BUS AIDE Jose Weathers MD LAB - CHEMISTRY UNRULY CARR Performing Organization Address [facility] de Phone Number [facility] ([facility]) * (ABNORMAL) THYROGLOBULIN (03/26/2017 9:14 AM SCHOOL BUS AIDE) Only the most recent of5 resultswithin the time period is included. Pathologist [facility] Thyroglobulin Antibody <1 < or = 1 IU/mL [facility] ([facility]) Thyroglobulin <0.1(L) ng/mL [facility] ([facility]) Comment: Reference Range: Intact Thyroid 2.8-40.9 Athyrotic <0.1 Note: Abnormal flagging is based on the reference interval for patients with intact thyroid. This test was performed using the [employer] chemiluminescent method. Values obtained from different assay methods cannot be used interchangeably. Thyroglobulin levels, regardless of value, should not be interpreted as absolute evidence of the presence or absence of disease. Test Performed at: [employer] [facility] [place] [address] LANDRY ALATORRE DO,MPH 03/26/2017 9:14 AM SCHOOL BUS AIDE 03/26/2017 9:15 AM SCHOOL BUS AIDE Jose Weathers MD LAB - CHEMISTRY UNRULY CARR Performing Organization Address [facility] de Phone Number [facility] ([facility]) * LAB HISTORICAL RESULTS-ONBASE (03/18/2016) 03/18/2016 Historical Provider LAB - CHEMISTRY O RDERABLES [facility] [address] [place] [address], [facility] * US SOFT TISSUE HEAD NECK (03/31/2011 4:03 PM SCHOOL BUS AIDE) Anatomical Region Laterality Modality Head Other Narrative 03/31/2011 4:03 PM SCHOOL BUS AIDE Ultrasound Of Thyroid Ultrasound of the Thyroid Test Date: 03/31/2011 Test Indication: thyroid cancer, hypothyroidism, s/p thyroidectomy Referring Physician: Referred by Dr. Jacek Gonzalez MD Procedure Preformed: Ultrasound Only Nodule Size: none Echogenicity: n/a Vascularity: n/a Number of Nodules Present: none Calcifications: none Borders: n/a Recommendations: Return in six months Lab now Lab in six months Eliu Albrecht MD Division of Endocrinology Procedure Note Provider, Lisa, - 08/17/2017 Ultrasound Of Thyroid Ultrasound of the Thyroid Test Date: 03/31/2011 Test Indication: thyroid cancer, hypothyroidism, s/p thyroidectomyReferring Physician: Referred by Dr. Jacek Gonzalez MD Procedure Preformed: Ultrasound Only Nodule Size: none Echogenicity: n/a Vascularity: n/a Number of Nodules Present: none Calcifications: none Borders: n/a Recommendations: Return in six months Lab now Lab in six months Eliu Albrecht MD Division of Endocrinology Eliu Albrecht MD ORDERABLES Care Teams Music Ministries Director Relationship Specialty Start Date End Date Dami Berrios MD [address] [place] [id number] PCP - General 07/24/16
--- OUTSIDE RECORDS SUMMARY | 2024-07-10 16:04 | XMS_ITS | Clinical Summary ---
Author Organization [facility] Address [address] [address] Phone Care Team Providers Care Blacking Wheel Tender Name Role Phone Dami Berrios MD Primary Care Provider [phone] Social History Tobacco Use Types Packs/Day Years Used Date Smoking Tobacco: Never Assessed Comments Unknown Sex and Gender Information Value Date Recorded Sex Assigned at Not on file Legal Sex Female 2:02 PM AIRCRAFT RIGGING AND CONTROLS MECHANIC Gender Identity Not on file Sexual Orientation Not on file Plan of Treatment Health Maintenance Due Date Last Done Comments Hepatitis C Virus (HCV) Screening 1974 Hepatitis B Immunization (1 of 3 - 19+ 3-dose series) 1993 Pap Smear 08/10/1995 Cervical Cancer Screening (CCS) 2004 HPV/Cotest 2004 Discussion re Starting/Frequency of Mammograms 2014 Colonoscopy 08/10/2019 Colorectal Cancer Screening 08/10/2019 Influenza Immunization (#1) 2024 03/23/2018 SARS-COV-2 Immunization ( season) 2024 02/16/2021, 01/19/2021 Cologuard 2024 Immunochemical Fecal Occult Blood 2024 Respiratory Syncytial Virus (RSV) Immunization (Adult) (1 - 1-dose 75+ series) 2049 DTaP/Tdap/Td Immunization Discontinued 05/17/2011 TdaP Immunization Completed 05/17/2011 Meningococcal Immunization (ACWY) Aged Out No longer eligible based on patient's age to complete this topic Pneumococcal Immunization Combined Aged Out No longer eligible based on patient's age to complete this topic Rotavirus Immunization Aged Out No lo nger eligible based on patient's age to complete this topic Insurance Care Teams Blacking Wheel Tender Relationship Specialty Start Date End Date Dami Berrios MD [address] [address] PCP - General Family Medicine 07/12/18
--- OUTSIDE RECORDS SUMMARY | 2024-07-10 16:04 | XMS_ITS | Clinical Summary ---
Author Organization [email or web address] Address [address] [place] [address] Care Team Providers Care Real Estate Photographer Name Role Phone Dami Berrios MD Primary Care Provider [phone] [email or web address],non-owned Affiliates and Associated Physician Practices is amultiple site organization consisting of ambulatory clinics and hospital sitesin [place], [place], [place] and [place]. This disclosure is being madepursuant to the Care Everywhere program and may not contain all information available regarding this patient. Last updated 18.[email or web address] Allergies Active Allergy Reactions Criticality Noted Date Comments Penicillins Rash 07/16/2010 Medications * Be aware that medications may not be up to date on this document. Alwaysverify current medications with the patient. Medication Sig Dispensed Refills Start Date End Date Status lisinopril (PRINIVIL;ZESTRIL) 5 MG tablet 12/30/2016 Active buPROPion SR 12hr (WELLBUTRIN SR) 200 MG tablet Take 200 mg by mouth DAILY. 5 07/20/2016 Active busPIRone (BUSPAR) 7.5 MG tablet Take 7.5 tablets by mouth DAILY. 2 07/16/2016 Active Active Problems Problem Noted Date Diagnosed Date Hypothyroidism 02/28/2015 Malignant neoplasm of thyroid gland 03/31/2011 Major depressive disorder, single episode 2010 Essential (primary) hypertension 03/31/2011 Uncomplicated asthma 03/31/2011 Family History Medical History Relation Name Comments High Cholesterol Brother Hypertension Brother Migraine Child Thyroid Disease Child Asthma Father CAD (Coronary Artery Disease) Father High Cholesterol Father Hypertension Father Migraine Father Cancer Maternal Aunt cervical Thyroid Disease Maternal Grandmother Diabetes Maternal Uncle times two Kidney Disease Maternal Uncle CVA Mother TIA High Cholesterol Mother Hypertension Mother Migraine Mother Thyroid Disease Mother Thyroid Disease Other 1 GGM Status: Aliv e Thyroid Disease Other 2 mat cousins Status: Aliv e Thyroid Disease Sister Osteoporosis Neg Hx Seizures Neg Hx Relation Name Status Comments Brother Child Father Maternal Aunt Maternal Grandmother Maternal Uncle Mother Other 1 GGM Other 2 mat cousins Sister Social History Tobacco Use Types Packs/Day Years [...] Comments Blood Pressure 108/78 04/30/2017 9:15 AM FRONT OFFICE DEVELOPER Pulse 92 04/30/2017 9:15 AM FRONT OFFICE DEVELOPER Temperature 36.2 C (97.1 F) 04/30/2017 9:15 AM FRONT OFFICE DEVELOPER Respiratory Rate 18 01/29/2017 8:26 AM CDT Oxygen Saturation 98% 04/30/2017 9:15 AM FRONT OFFICE DEVELOPER Inhaled Oxygen Concentration - - Weight 85.6 kg (188 lb 11.2 oz) 04/30/2017 9:15 AM FRONT OFFICE DEVELOPER Height 167.6 cm (5' 6 ) 04/30/2017 9:15 AM FRONT OFFICE DEVELOPER Body Mass Index 30.46 04/30/2017 9:15 AM FRONT OFFICE DEVELOPER Plan of Treatment Health Maintenance Due Date Last Done Comments COLOGUARD (AGES 45-75) - COL ON CA SCREENING 1974 COLON MONITORING 1974 COLONOSCOPY - COLON CA SCREENING 1974 CT COLONOGRAPHY - COLON CA SCREENING 1974 Colorectal Cancer Screening 1974 FIT - COLON CA SCREENING 1974 FLEX SIG - COLON CA SCREENING 1974 LIPID TESTING 1974 MAMMOGRAM 1974 PAP SMEAR 1974 HIV SCREENING 1989 HEPATITIS C SCREENING 08/04/1992 DTAP/TDAP/TD VACCINES (1 - Tdap) 1993 HEPATITIS B VACCINE (1 of 3 - 19+ 3-dose series) 1993 COVID-19 VACCINE (2023-2 5 season) 2024 INFLUENZA VACCINE (#1) 2024 DEPRESSION SCREENING 05/17/2024 ZOSTER VACCINE (1 of 2) 2024 HIB VACCINE Aged Out No longer eligi ble based on patient's age to complete this topic HPV VACCINE Aged Out No longer eligi ble based on patient's age to complete this topic MENINGOCOCCAL (Group B) VACCINE Aged Out No longer eligible based on patient's age to complete this topic MENINGOCOCCAL VACCINE Aged Out No alen lynsey eligible based on patient's age to complete this topic Care Teams Real Estate Photographer Relationship Specialty Start Date End Date Dami Berrios MD [address] [place] [address] PCP - General 07/24/16
--- OUTSIDE RECORDS SUMMARY | 2024-07-10 16:04 | XMS_ITS | Referral Summary ---
Author Organization [facility] Address [address] [place] [address] Care Team Providers Care Commercial Banker Name Role Phone Dami Berrios MD Primary Care Provider [phone] Source Comments [facility],non-owned Affiliates and Associated Physician Practices is amultiple site organization consisting of ambulatory clinics and hospital sitesin [place], [place], [place] and [place]. This disclosure is being madepursuant to the Care Everywhere program and may not contain all information available regarding this patient. Last updated 18.[facility] Allergies Active Allergy Reactions Criticality Noted Date [...] Comments Blood Pressure 108/78 04/30/2017 9:15 AM RETAIL CENTER RECEPTIONIST Pulse 92 04/30/2017 9:15 AM RETAIL CENTER RECEPTIONIST Temperature 36.2 C (97.1 F) 04/30/2017 9:15 AM RETAIL CENTER RECEPTIONIST Respiratory Rate 18 01/29/2017 8:26 AM CDT Oxygen Saturation 98% 04/30/2017 9:15 AM RETAIL CENTER RECEPTIONIST Inhaled Oxygen Concentration - - Weight 85.6 kg (188 lb 11.2 oz) 04/30/2017 9:15 AM RETAIL CENTER RECEPTIONIST Height 167.6 cm (5' 6 ) 04/30/2017 9:15 AM RETAIL CENTER RECEPTIONIST Body Mass Index 30.46 04/30/2017 9:15 AM RETAIL CENTER RECEPTIONIST Plan of Treatment Not on file Care Teams Commercial Banker Relationship Specialty Start Date End Date Dami Berrios MD [address] [place] [address] PCP - General 07/24/16
--- OUTSIDE RECORDS SUMMARY | 2024-07-10 16:05 | XMS_ITS | Referral Summary ---
Author Organization [facility] Address [facility] [place] [address] Care Team Providers Care Principal Cloud Architect Name Role Phone Dami Berrios MD Primary Care Provider Encounters Date Type Department Care Team Description 05/29/2024 2:30 PM CONTRACT NEGOTIATOR Lab [facility] - Lab Collection [address] [place] [address] Post-surgical hypothyroidism; Papillary thyroid carcinoma (HCC); Hot flashes due to menopause 05/29/2024 1:40 PM CONTRACT NEGOTIATOR Office Visit [facility] Endocrinology Metabolism and Lipid [address], [address] [place] [address] Edwin Hernandez MD Post-surgical hypothyroidism (Primary Dx); Papillary thyroid carcinoma (HCC); Hot flashes due to menopause; Malignant neoplasm of thyroid gland (HCC) from Last 3 Months Allergies Active Allergy Reactions Criticality Noted Date [...] by mouth daily 90 tablet 3 06/02/2024 Active Active Problems Problem Noted Date Diagnosed Date Post-surgical hypothyroidism 05/29/2024 Assessment & Plan (05/29/2024 2:18 PM CONTRACT NEGOTIATOR): Switch to synthroid 150 mcg every day [...] 03/31/2011 Assessment & Plan (05/29/2024 2:21 PM CONTRACT NEGOTIATOR): No evidence of tumor recurrence on biochemical [...] recently Tirosint 150mcg qD. Had followed with [facility] endocrinology (Dr. Ines Mc) but this provider retired and there is now no qualified paralegal instructor in her area. She came to this visit today to obtain a referral to endocrinology, and requested Dr. Camara if available. She prefers to continue her primary care at her outside PCP as it is closer to home and more convenient for her. - Referral to endocrinology placed today Social History Tobacco Use Types Packs/Day Years [...] on file Legal Sex Female 10:30 AM CONTRACT NEGOTIATOR Gender Identity Not on file Sexual Orientation Not on file Last Filed Vital Signs Vital Sign Reading Time Taken Comments Blood Pressure 122/76 05/29/2024 1:10 PM CONTRACT NEGOTIATOR Pulse 69 05/29/2024 1:10 PM CONTRACT NEGOTIATOR Temperature 36.9 C (98.4 F) 05/29/2024 1:10 PM CONTRACT NEGOTIATOR Respiratory Rate 18 05/29/2024 1:10 PM CONTRACT NEGOTIATOR Oxygen Saturation 97% 12/20/2023 1:51 PM CDT Inhaled Oxygen Concentration - - Weight 87.5 kg (193 lb) 05/29/2024 1:10 PM CONTRACT NEGOTIATOR Height 166 cm (5' 5.35 ) 05/29/2024 1:10 PM CONTRACT NEGOTIATOR Body Mass Index 31.77 05/29/2024 1:10 PM CONTRACT NEGOTIATOR Plan of Treatment Not on file Procedures Procedure Name Priority Date/Time Associated Diagnosis Comments REFLEX THYROGLOBULIN, TUMOR MARKER, IA, S Routine 05/29/2024 2:16 PM CONTRACT NEGOTIATOR EGFR Routine 05/29/2024 2:16 PM CONTRACT NEGOTIATOR Papillary thyroid carcinoma (HCC) FOLLICLE STIMULATING HORMONE Routine 05/29/2024 2:16 PM CONTRACT NEGOTIATOR Hot flashes due to menopause THYROGLOBULIN REFLEX TO MS OR IA Routine 05/29/2024 2:16 PM CONTRACT NEGOTIATOR Papillary thyroid carcinoma (HCC) T4, FREE Routine 05/29/2024 2:16 PM CONTRACT NEGOTIATOR Papillary thyroid carcinoma (HCC) RENAL FUNCTION PANEL Routine 05/29/2024 2:16 PM CONTRACT NEGOTIATOR Papillary thyroid carcinoma (HCC) TSH Routine 05/29/2024 2:16 PM CONTRACT NEGOTIATOR Post-surgical hypothyroidism from Last 3 Months Results * Reflex thyroglobulin, tumor marker, IA, S (05/29/2024 2:16 PM CONTRACT NEGOTIATOR) Thyroglobulin, Tumor Marker <0.1 ng/mL [facility] Comment: REFERENCE VALUE Athyrotic <0.1 Intact Thyroid <=33 Thyroglobulin interp See Footnote [facility] Comment: Thyroglobulin (Tg) levels must be interpreted [...] testing methods are immunoenzymatic assays manufactured by [employer] and performed on the [employer] DXI 800. Values obtained from different assay methods or kits may be different and cannot be used interchangeably. The results cannot be interpreted as absolute evidence for the presence or absence of malignant disease. Test Performed by: [place] [address] Retail Team Member: Carolin Mathews Ph.D.; CLIA# [id number] Blood 05/29/2024 2:16 PM CONTRACT NEGOTIATOR 05/29/2024 3:55 PM CONTRACT NEGOTIATOR Edwin Hernandez MD LAB BLOOD ORDERABLES Final Resu lt AALIYAH TURCIOS [facility] [place] [address] [facility] * eGFR (05/29/2024 2:16 PM CONTRACT NEGOTIATOR) eGFR >90 >=60 mL/min/1. 73 m2 Comment: [...] last reviewed 2021. Blood 05/29/2024 2:16 PM CONTRACT NEGOTIATOR 05/29/2024 2:23 PM CONTRACT NEGOTIATOR us Edwin Hernandez MD LAB BLOOD ORDERABLES Final Resu lt Performing Organization Address City[facility] Co de Phone Number [facility] [place] [address] * Thyroglobulin reflex to MS or IA (05/29/2024 2:16 PM CONTRACT NEGOTIATOR) Anti-thyroglobulin <1.8 <1.8 IUnits/mL [facility] Comment: Thyroglobulin Antibody < 1.8 IU/mL. Thyroglobulin performed by Immunoassay to follow. Test Performed by: [place] [address] Retail Team Member: Carolin Mathews Ph.D.; CLIA# [id number] Blood 05/29/2024 2:16 PM CONTRACT NEGOTIATOR 05/29/2024 3:55 PM CONTRACT NEGOTIATOR us Edwin Hernandez MD LAB BLOOD ORDERABLES Final Resu lt [facility] [place] [address] [facility] * (ABNORMAL) TSH (05/29/2024 2:16 PM CONTRACT NEGOTIATOR) Thyroid Stimulating Hormone 0.02(L) 0.30 - 4.20 mcIUnit/mL Blood 05/29/2024 2:16 PM CONTRACT NEGOTIATOR 05/29/2024 2:23 PM CONTRACT NEGOTIATOR us Edwin Hernandez MD LAB BLOOD ORDERABLES Final Resu lt Performing Organization Address [facility] de Phone Number [facility] [place] [address] * T4, free (05/29/2024 2:16 PM CONTRACT NEGOTIATOR) Pathologist [facility] Free T4 1.42 0.90 - 1.70 ng/dL Blood 05/29/2024 2:16 PM CONTRACT NEGOTIATOR 05/29/2024 2:23 PM CONTRACT NEGOTIATOR us Edwin Hernandez MD LAB BLOOD ORDERABLES Final Resu lt Performing Organization Address [facility] de Phone Number [facility] [place] [address] * Follicle stimulating hormone (05/29/2024 2:16 PM CONTRACT NEGOTIATOR) Pathologist [facility] FSH 93.9 IUnits/L Comment: Interpretive Data Male: Adults: 1.5 - 12.4 IUnits/L Female: Follicular: 3.5 - 12.5 IUnits/L Ovulation: 4.7 - 21.5 IUnits/L Luteal: 1.7 - 7.7 IUnits/L Postmenopausal: 25.8 - 134.8 IUnits/L Current interpretive data was last revised 2015. Blood 05/29/2024 2:16 PM CONTRACT NEGOTIATOR 05/29/2024 2:54 PM CONTRACT NEGOTIATOR us Edwin Hernandez MD LAB BLOOD ORDERABLES Final Resu lt Performing Organization Address [facility] de Phone Number [facility] Department [place] [address] * (ABNORMAL) Renal function panel (05/29/2024 2:16 PM CONTRACT NEGOTIATOR) Sodium 139 135 - 145 mmol/L Potassium, pl 3.9 3.3 - 4.9 mmol/L [facility] Chloride 103 97 - 110 mmol/L [facility] CO2 29 22 - 32 mmol/L [facility] Anion gap 7 2 - 15 mmol/L [facility] BUN 14 6 - 25 mg/dL [facility] Creatinine 0.74 0.60 - 1.10 mg/dL [facility] Glucose 92 70 - 199 mg/dL [facility] Comment: Interpretive Data Fasting glucose >/= 126 [...] 2022. Calcium 10.5(H) 8.5 - 10.3 mg/dL [facility] Phosphorus, pl 3.1 2.3 - 4.5 mg/dL [facility] Albumin 4.2 3.5 - 5.0 g/dL [facility] Blood 05/29/2024 2:16 PM CONTRACT NEGOTIATOR 05/29/2024 2:23 PM CONTRACT NEGOTIATOR us Edwin Hernandez MD LAB BLOOD ORDERABLES Final Resu lt [facility] [place] [address] from Last 3 Months Insurance [employer] FED[employer] [facility] FEDERAL Care Teams Principal Cloud Architect Relationship Specialty Start Date End Date Dami Berrios MD PCP - General Family Medicine 09/06/20
--- OUTSIDE RECORDS SUMMARY | 2024-07-10 16:07 | XMS_ITS | Data Portability ---
Author Organization [facility] [address], Main Office Address [address] [place] [address] Care Team Providers Care Advanced Manufacturing Consultant Name Role Phone ARNULFO HARKINS Primary Care Provider [phone] Assessment No assessment recorded. Plan of Treatment Reminders Order Date Submit Date Provider Last Modified By Organization Details Last Modified Time Details Appointments None recorded. Lab vitamin B12 + folate, serum or blood 2022 023 [facility], [address], [place], [address], 3 10:57:49 dhea-sulfat e, serum 2022 023 [facility], [address], [place], [address], 3 10:57:46 testosteron e, free + total, serum 2022 023 [facility], [address], [place], [address], 3 10:57:52 estradiol, serum 2022 023 [facility], [address], [place], [address], 3 10:57:48 progesteron e, serum 2022 023 [facility], [address], [place], [address], 3 10:57:46 TSH + free T4, serum 2022 023 [facility], [address], [address], [place], [address], 3 10:57:51 thyroglobul in + thyroglobul in Ab, serum 2022 023 [facility], [address], [address], [place], [address], 10:57:50 T3, free, serum or plasma 2022 023 [facility], [address], [address], [place], [address], 3 10:57:49 CMP, serum or plasma 2022 023 [facility], [address], [address], [place], [address], 10:57:45 iron + TIBC + ferritin, serum 2022 023 [facility], [address], [address] [place], [place], [address], 3 10:57:44 HbA1c (hemoglobin A1c), blood 2022 023 [facility], [address], [address], [place], [address], 3 10:57:52 insulin, serum 2022 023 [facility], [address], [address] [place], [place], [address], 10:57:47 Referral None recorded. Procedures None recorded. Surgeries None recorded. Imaging None recorded. Medication Orders ferrous sulfate 325 mg (65 mg iron) tablet 2022 023 [facility], [address] [facility], [place], [address], 3 15:09:08 Patient TargetsNo targets recorded. Patient InstructionsNo instructions recorded. Reason for Referral None Reported. Results Created Date Observation Date Name Description Value Unit Range Abnormal Flag Note LastModifiedBy Organization Detail LastModifiedTime 02/22/20 21 02/24/2021 TSH+F REE T4 TSH 0.02 mIU/L low Refer ence Range > or = 20 Years 0.40- 4.50 Pregn lorna Range s First trime ster 0.26- 2.66 Secon d trime ster 0.55- 2.73 Third trime ster 0.43- 2.91 Not Available [facility] [address] [place], [address], 02/24/2021 16:33:07 02/22/20 21 02/24/2021 TSH+F REE T4 T4, free 1.1 NG/dL 0.8-1. 8 normal Not Available [facility] [address] [place], [address], 02/24/2021 16:33:07 02/22/20 21 02/24/2021 VITAM IN D,25- OH,TO TARYN,I A vitamin D,25-oh,tota l,ia 73 NG/mL 30-100 normal Vitam in D Statu s 25-OH Vitam in D: Defic iency : <20 ng/mL Insuf ficie ncy: 20 - 29 ng/mL Optim al: > or = 30 ng/mL For 25-OH Vitam in D testi ng on patie nts on D2-sheikh pplem entat ion and patie nts for whom quant itati on of D2 and D3 fract ions is requi red, the [facility] Assur eD(TM ) 25-OH VIT D, (D2,D 3), LC/MS /MS is recom jose d: order code 39885 (devante ents >2yrs ). See Note 1 Note 1 For addit ional infor werner matthew e refer to http: //shahrzad celaya.Albert stDia gnost ics.c om/fa q/FAQ 199 (This link is being provi ded for infor daniel nal/ tanisha champion purpo ses only. ) Not Available [address], [address], 02/24/2021 16:33:07 02/22/20 21 02/24/2021 T3, FREE T3, free 3.8 pg/mL 2.3-4. 2 normal Not Available [address], [address], 02/24/2021 16:33:06 02/22/20 21 02/24/2021 VITAM IN B12/F OLATE , SERUM PANEL vitamin B12 872 pg/mL 200-11 00 normal Not Available [address], [address], 02/24/2021 16:33:05 02/22/20 21 02/24/2021 VITAM IN B12/F OLATE , SERUM PANEL folate, serum 9.1 NG/mL normal Refer ence Range Low: <3.4 Borde rline : 3.4-5 .4 Mayra l: >5.4 Not Available [address], [address], 02/24/2021 16:33:05 02/22/20 21 02/24/2021 THYRO ID PEROX IDASE ANTIB ODIES thyroid peroxidase antibodies 1 IU/mL <9 normal Not Available [address], [address], 02/24/2021 16:33:05 02/22/20 21 02/24/2021 COMPR EHENS UCHE METAB OLIC PANEL eGFR 106 mL/mi n/1.7 3m2 > or = 60 normal Not Available [address], [address], 02/24/2021 16:33:04 02/22/20 21 02/24/2021 COMPR EHENS UCHE METAB OLIC PANEL ALT 15 U/L 6-29 normal Not Available [address], [address], 02/24/2021 16:33:04 02/22/20 21 02/24/2021 COMPR EHENS UCHE METAB OLIC PANEL glucose 104 mg/dL 65-99 high Fasti ng refer ence inter suzanne For someo ne witho ut known diabe reg, a gluco se value betwe en 100 and 125 mg/dL is consi stent with predi abete s and shoul d be confi rmed with a follo w-up test. Not Available [address], [address], 02/24/2021 16:33:04 02/22/20 21 02/24/2021 COMPR EHENS UCHE METAB OLIC PANEL urea nitrogen (BUN) 11 mg/dL 7-25 normal Not Available [address], [address], 02/24/2021 16:33:04 02/22/20 21 02/24/2021 COMPR EHENS UCHE METAB OLIC PANEL creatinine 0.78 mg/dL 0.50-1 .10 normal Not Available [address], [address], 02/24/2021 16:33:04 02/22/20 21 02/24/2021 COMPR EHENS UCHE METAB OLIC PANEL eGFR non-afr. belgian 91 mL/mi n/1.7 3m2 > or = 60 normal Not Available [address], [address], 02/24/2021 16:33:04 02/22/20 21 02/24/2021 COMPR EHENS UCHE METAB OLIC PANEL BUN/creatini ne ratio not applic able (calc ) 6-22 Not Available [address], [address], 02/24/2021 16:33:04 02/22/20 21 02/24/2021 COMPR EHENS UCHE METAB OLIC PANEL sodium 140 mmol/ L 135-14 6 normal Not Available [address], [address], 02/24/2021 16:33:04 02/22/20 21 02/24/2021 COMPR EHENS UCHE METAB OLIC PANEL potassium 4.1 mmol/ L 3.5-5. 3 normal Not Available [address], [address], 02/24/2021 16:33:04 02/22/20 21 02/24/2021 COMPR EHENS UCHE METAB OLIC PANEL chloride 106 mmol/ L 98-110 normal Not Available [address], [address], 02/24/2021 16:33:04 02/22/20 21 02/24/2021 COMPR EHENS UCHE METAB OLIC PANEL carbon dioxide 27 mmol/ L 20-32 normal Not Available [address], [address], 02/24/2021 16:33:04 02/22/20 21 02/24/2021 COMPR EHENS UCHE METAB OLIC PANEL calcium 9.0 mg/dL 8.6-10 .2 normal Not Available [address], [address], 02/24/2021 16:33:04 02/22/20 21 02/24/2021 COMPR EHENS UCHE METAB OLIC PANEL protein, total 7.1 g/dL 6.1-8. 1 normal Not Available [address], [address], 02/24/2021 16:33:04 02/22/20 21 02/24/2021 COMPR EHENS UCHE METAB OLIC PANEL albumin 4.0 g/dL 3.6-5. 1 normal Not Available [address] [address] [place], [address], 02/24/2021 16:33:04 02/22/20 21 02/24/2021 COMPR EHENS UCHE METAB OLIC PANEL globulin 3.1 g/dL_ (calc ) 1.9-3. 7 normal Not Available [address] [address] [place], [address], 02/24/2021 16:33:04 02/22/20 21 02/24/2021 COMPR EHENS UCHE METAB OLIC PANEL albumin/glob ulin ratio 1.3 (calc ) 1.0-2. 5 normal Not Available [address] [address] [place], [address], 02/24/2021 16:33:04 02/22/20 21 02/24/2021 COMPR EHENS UCHE METAB OLIC PANEL bilirubin, total 0.6 mg/dL 0.2-1. 2 normal Not Available [address] [address] [place], [address], 02/24/2021 16:33:04 02/22/20 21 02/24/2021 COMPR EHENS UCHE METAB OLIC PANEL alkaline phosphatase 84 U/L 31-125 normal Not Available [address] [address] [place], [address], 02/24/2021 16:33:04 02/22/20 21 02/24/2021 COMPR EHENS UCHE METAB OLIC PANEL AST 17 U/L 10-35 normal Not Available [address] [address] [place], [address], 02/24/2021 16:33:04 04/30/20 21 05/01/2021 HEMOG LOBIN A1C hemoglobin A1C 5.5 %_of_ total _HGB <5.7 normal Not Available [address] [address] [place], [address], 05/01/2021 12:57:44 04/30/20 21 05/01/2021 TSH+F REE T4 TSH 0.01 mIU/L low Refer ence Range > or = 20 Years 0.40- 4.50 Pregn lorna Range s First trime ster 0.26- 2.66 Secon d trime ster 0.55- 2.73 Third trime ster 0.43- 2.91 Not Available [employer] [address] [address] [place], [address], 05/01/2021 12:57:44 04/30/2005/01/2021 TSH+F REE T4 T4, free 1.3 NG/dL 0.8-1. 8 normal Not Available [employer] [address] [address] [place], [address], 05/01/2021 12:57:44 04/30/2005/01/2021 T3, FREE T3, free 4.2 pg/mL 2.3-4. 2 normal Not Available [employer] [address] [address] [place], [address], 05/01/2021 12:57:43 04/30/2005/01/2021 INSUL IN insulin 17.8 uIU/m L normal Refer ence Range < or = 19.6 Risk: Optim al < or = 19.6 Moder ate NA High >19.6 Adult cardi ovasc ular event risk categ ory cut point s (opti mal, moder ate, high) are based on [facility] ostic s popul ation data from 05/05 11. This insul in assay shows stron g cross -reac tivit y for some insul in analo gs (lisp ro, aspar t, and glarg ine) and much lower cross -reac tivit y with other s (dete attila, gluli sine) . Not Available [employer] [address] [address] [place], [address], 05/01/2021 12:57:42 04/30/2005/01/2021 THYRO ID PEROX IDASE ANTIB ODIES thyroid peroxidase antibodies 2 IU/mL <9 normal Not Available [address], [address], 05/01/2021 12:57:41 04/30/20 21 05/01/2021 COMPR EHENS UCHE METAB OLIC PANEL glucose 101 mg/dL 65-99 high Fasti ng refer ence inter suzanne For someo ne witho ut known diabe reg, a gluco se value betwe en 100 and 125 mg/dL is consi stent with predi abete s and shoul d be confi rmed with a follo w-up test. Not Available [address], [address], 05/01/2021 12:57:41 04/30/20 21 05/01/2021 COMPR EHENS UCHE METAB OLIC PANEL urea nitrogen (BUN) 14 mg/dL 7-25 normal Not Available [address], [address], 05/01/2021 12:57:41 04/30/20 21 05/01/2021 COMPR EHENS UCHE METAB OLIC PANEL creatinine 0.74 mg/dL 0.50-1 .10 normal Not Available [address], [address], 05/01/2021 12:57:41 04/30/20 21 05/01/2021 COMPR EHENS UCHE METAB OLIC PANEL eGFR non-afr. belgian 97 mL/mi n/1.7 3m2 > or = 60 normal Not Available [address], [address], 05/01/2021 12:57:41 04/30/20 21 05/01/2021 COMPR EHENS UCHE METAB OLIC PANEL eGFR 113 mL/mi n/1.7 3m2 > or = 60 normal Not Available [address] [address] [place], [address], 05/01/2021 12:57:41 04/30/20 21 05/01/2021 COMPR EHENS UCHE METAB OLIC PANEL BUN/creatini ne ratio not applic able (calc ) 6-22 Not Available [address], [address], 05/01/2021 12:57:41 04/30/20 21 05/01/2021 COMPR EHENS UCHE METAB OLIC PANEL sodium 140 mmol/ L 135-14 6 normal Not Available [address], [address], 05/01/2021 12:57:41 04/30/20 21 05/01/2021 COMPR EHENS UCHE METAB OLIC PANEL potassium 4.5 mmol/ L 3.5-5. 3 normal Not Available [address], [address], 05/01/2021 12:57:41 04/30/20 21 05/01/2021 COMPR EHENS UCHE METAB OLIC PANEL chloride 104 mmol/ L 98-110 normal Not Available [address], [address], 05/01/2021 12:57:41 04/30/20 21 05/01/2021 COMPR EHENS UCHE METAB OLIC PANEL carbon dioxide 32 mmol/ L 20-32 normal Not Available [address], [address], 05/01/2021 12:57:41 04/30/20 21 05/01/2021 COMPR EHENS UCHE METAB OLIC PANEL calcium 9.4 mg/dL 8.6-10 .2 normal Not Available [address], [address], 05/01/2021 12:57:41 04/30/20 21 05/01/2021 COMPR EHENS UCHE METAB OLIC PANEL protein, total 7.2 g/dL 6.1-8. 1 normal Not Available [address] [address] [place], [address], 05/01/2021 12:57:41 04/30/20 21 05/01/2021 COMPR EHENS UCHE METAB OLIC PANEL albumin 4.2 g/dL 3.6-5. 1 normal Not Available [address] [address] [place], [address], 05/01/2021 12:57:41 04/30/20 21 05/01/2021 COMPR EHENS UCHE METAB OLIC PANEL globulin 3.0 g/dL_ (calc ) 1.9-3. 7 normal Not Available [address] [address] [place], [address], 05/01/2021 12:57:41 04/30/20 21 05/01/2021 COMPR EHENS UCHE METAB OLIC PANEL albumin/glob ulin ratio 1.4 (calc ) 1.0-2. 5 normal Not Available [address] [address] [place], [address], 05/01/2021 12:57:41 04/30/20 21 05/01/2021 COMPR EHENS UCHE METAB OLIC PANEL bilirubin, total 0.7 mg/dL 0.2-1. 2 normal Not Available [address] [address] [place], [address], 05/01/2021 12:57:41 04/30/20 21 05/01/2021 COMPR EHENS UCHE METAB OLIC PANEL alkaline phosphatase 84 U/L 31-125 normal Not Available [facility] [employer] [address] [address] [place], [address], 05/01/2021 12:57:41 04/30/20 21 05/01/2021 COMPR EHENS UCHE METAB OLIC PANEL AST 16 U/L 10-35 normal Not Available [address] [address] [place], [address], 05/01/2021 12:57:41 04/30/20 21 05/01/2021 COMPR EHENS UCHE METAB OLIC PANEL ALT 14 U/L 6-29 normal Not Available [address] [address] [place], [address], 05/01/2021 12:57:41 04/30/20 21 05/01/2021 LIPID PANEL , STAND LURDES non HDL cholesterol 103 mg/dL _(jenna c) <130 normal For patie nts with diabe reg plus 1 major ASCVD risk facto r, treat ing to a non-H DL-C goal of <100 mg/dL (LDL- C of <70 mg/dL ) is florin artis optio n. Not Available [address] [address] [place], [address], 05/01/2021 12:57:40 04/30/20 21 05/01/2021 LIPID PANEL , STAND LURDES cholesterol, total 144 mg/dL <200 normal Not Available [address] [address] [place], [address], 05/01/2021 12:57:40 04/30/20 21 05/01/2021 LIPID PANEL , STAND LURDES HDL cholesterol 41 mg/dL > or = 50 low Not Available [address] [address] [place], [address], 05/01/2021 12:57:40 04/30/20 21 05/01/2021 LIPID PANEL , STAND LURDES triglyceride s 109 mg/dL <150 normal Not Available [address] [place], [address], 05/01/2021 12:57:40 04/30/20 21 05/01/2021 LIPID PANEL , STAND LURDES LDL-choleste rol 82 mg/dL _(jenna c) normal Refer ence range : <100 Richard able range <100 mg/dL for prima ry preve ntion ; <70 mg/dL for patie nts with CHD or diabe tic patie nts with > or = 2 CHD risk facto rs. LDL-C is now calcu lated using the Karmen n-Hop kins calcu patricio n, which is a valid ated novel metho d provi ding maki r accur acy than the Fried bobby equat ion in the estim ation of LDL-C . Karmen celaya SS et al. JOCELYNE. 2013; 310(1 9): 2061- 2068 (http ://ed ucati on.Qu estDi Tidal [employer]. com/f aq/FA Q164) Not Available [facility] [address] [place], [address], 05/01/2021 12:57:40 04/30/20 21 05/01/2021 LIPID PANEL , STAND LURDES chol/HDLC ratio 3.5 (calc ) <5.0 normal Not Available [facility] [address] [place], [address], 05/01/2021 12:57:40 05/20/19 22 05/22/2021 ESTRA DIOL estradiol 75 pg/mL normal Refer ence Range Folli cular Phase : 19-14 4 Mid-C ycle: 64-35 7 Lutea l Phase : 56-21 4 Postm enopa usal: < or = 31 Refer ence range estab lishe d on post- puber taryn patie nt popul ation . No pre-p ubert al refer ence range estab lishe d using this assay . For any patie nts for whom low Estra diol level s are antic ipate d (e.g. males , pre-p ubert al child adore and hypog onada l/pos t-men opaus al femal es), the [facility] Dyllan ls Insti tute Estra diol, Ultra sensi tive, LCMSM S assay is recom jose d (orde r code 40414 ). Pleas e note: patie nts being treat ed with the drug fulve stran t (Fasl odex( R)) have demon strat ed signi fican t inter feren ce in immun oassa y metho ds for estra diol measu remen t. The cross react ivity could lead to false ly eleva jaime estra diol test resul ts leadi ng to an inapp ropri ate clini jenna asses sment of estro gen statu s. [facility] order code [id number] -Estr adiol , Ultra sensi tive LC/MS /MS demon strat es negli gible cross react ivity with fulve stran t. Not Available [employer] [address] [place], [address], 05/22/2021 22:30:11 05/20/19 22 05/22/2021 DHEA SULFA TE DHEA sulfate 68 mcg/d L 19-231 normal DHEA- S value s fall with advan cing age. For refer ence, the refer ence inter vals for 31-40 year old patie nts are: Male: 106-4 64 mcg/d L Femal e: 23-26 6 mcg/d L Not Available [facility] [address] [place], [address], 05/22/2021 22:30:11 05/20/19 22 05/22/2021 TESTO STERO NE, FREE, BIOAV AILAB LE AND TOTAL , MS albumin 4.5 g/dL 3.6-5. 1 Not Available [employer] [address] [address] [place], [address], 05/22/2021 22:30:10 05/20/19 22 05/22/2021 TESTO STERO NE, FREE, BIOAV AILAB LE AND TOTAL , MS sex hormone binding globulin 47.9 nmol/ L 17-124 Not Available [employer] [address] [address] [place], [address], 05/22/2021 22:30:10 05/20/19 22 05/22/2021 TESTO STERO NE, FREE, BIOAV AILAB LE AND TOTAL , MS testosterone , free 1.9 pg/mL 0.2-5. 0 Not Available [facility] [address] [place], [address], 05/22/2021 22:30:10 05/20/19 22 05/22/2021 TESTO STERO NE, FREE, BIOAV AILAB LE AND TOTAL , MS testosterone ,bioavailabl e 3.9 NG/dL 0.5-8. 5 Not Available [address] [address] [place], [address], 05/22/2021 22:30:10 05/20/19 22 05/22/2021 TESTO STERO NE, FREE, BIOAV AILAB LE AND TOTAL , MS testosterone , total, MS 22 NG/dL 2-45 For addit ional infor werner matthew e refer to https ://ed ucati on.qu estRaumfelds. com/f aq/FA Q165 (This link is being provi ded for infor matbere nal/e ducat ional purpo ses only. ) (Note ) This test was devel royaed and its miles tical perfo rmanc e susan cteri stics have been deter mined by [employer]. It has not been clear ed or appro [place] by the FDA. This assay has been valid ated pursu ant to the CLIA regul ation s and is used for clini jenna purpo ses. ANKIT med fusbere n [address] [facility] [address] [facility] [address] [phone] Samuel santiago MD Not Available [facility] [address] [address] [place], [address], 05/22/2021 22:30:10 05/20/19 22 05/22/2021 IRON, TIBC AND EDUARDO TIN PANEL ferritin 33 NG/mL 16-232 normal Not Available [facility] [address], [address], 05/22/2021 22:30:10 05/20/19 22 05/22/2021 IRON, TIBC AND EDUARDO TIN PANEL iron, total 49 mcg/d L 40-190 normal Not Available [facility] [address], [address], 05/22/2021 22:30:10 05/20/19 22 05/22/2021 IRON, TIBC AND EDUARDO TIN PANEL iron binding capacity 320 mcg/d L_(ca lc) 250-45 0 normal Not Available [facility] [address] [place], [address], 05/22/2021 22:30:10 05/20/19 22 05/22/2021 IRON, TIBC AND EDUARDO TIN PANEL % saturation 15 %_(ca lc) 16-45 low Not Available [facility] [address] [place], [address], 05/22/2021 22:30:10 08/17/19 22 08/20/2021 HEMOG LOBIN A1C hemoglobin A1C 5.5 %_of_ total _HGB <5.7 normal For the purpo se of klarissa plunkett for the prese nce of diabe reg: <5.7% Consi stent with the absen ce of diabe reg 5.7-6 .4% Consi stent with incre ased risk for diabe reg (pred iabet es) > or =6.5% Consi stent with diabe reg This assay resul t is consi stent with a decre ased risk of diabe reg. Curre ntly, no conse nsus exist s nitin wahl use of hemog lobin A1c for diagn osis of diabe reg in child adore. Accor ding to Ameri can Diabe reg Assoc iatio n (ADA) guide lines , hemog lobin A1c <7.0% repre sents optim al contr ol in non-p regna nt diabe tic patie nts. Diffe rent metri cs may apply to speci fic patie nt popul ation s. Stand ards of Medic al Care in Diabe reg(A DA). Not Available [facility] [address] [place], [address], 08/20/2021 15:24:39 08/17/19 22 08/20/2021 TSH+F REE T4 TSH 0.11 mIU/L low Refer ence Range > or = 20 Years 0.40- 4.50 Pregn lorna Range s First trime ster 0.26- 2.66 Secon d trime ster 0.55- 2.73 Third trime ster 0.43- 2.91 Not Available [facility] [address] [address] [place], [address], 08/20/2021 15:24:39 08/17/19 22 08/20/2021 TSH+F REE T4 T4, free 1.0 NG/dL 0.8-1. 8 normal Not Available [facility] [address] [address] [place], [address], 08/20/2021 15:24:39 08/17/19 22 08/20/2021 T3, FREE T3, free 3.2 pg/mL 2.3-4. 2 normal Not Available [facility] [address] [address] [place], [address], 08/20/2021 15:24:38 08/17/19 22 08/20/2021 ESTRA DIOL estradiol 49 pg/mL normal Refer ence Range Folli cular Phase : 19-14 4 Mid-C ycle: 64-35 7 Lutea l Phase : 56-21 4 Postm enopa usal: < or = 31 Refer ence range estab lishe d on post- puber taryn patie nt popul ation . No pre-p ubert al refer ence range estab lishe d using this assay . For any patie nts for whom low Estra diol level s are antic ipate d (e.g. males , pre-p ubert al child adore and hypog onada l/pos t-men opaus al femal es), the [facility] Dyllan ls Insti tute Estra diol, Ultra sensi tive, LCMSM S assay is recom jose d (orde r code [id number] ). Pleas e note: patie nts being treat ed with the drug fulve stran t (Fasl odex( R)) have demon strat ed signi fican t inter feren ce in immun oassa y metho ds for estra diol measu remen t. The cross react ivity could lead to false ly eleva jaime estra diol test resul ts leadi ng to an inapp ropri ate clini jenna asses sment of estro gen statu s. [facility] ostic s order code [id number] -Estr adiol , Ultra sensi tive LC/MS /MS demon strat es negli gible cross react ivity with fulve stran t. Not Available [employer] [address] [address] [place], [address], 08/20/2021 15:24:38 08/17/19 22 08/20/2021 INSUL IN insulin 18.8 uIU/m L normal Refer ence Range < or = 19.6 Risk: Optim al < or = 19.6 Moder ate NA High >19.6 Adult cardi ovasc ular event risk categ ory cut point s (opti mal, moder ate, high) are based on [facility] ostic s popul ation data from 05/05 11. This insul in assay shows stron g cross -reac tivit y for some insul in analo gs (lisp ro, aspar t, and glarg ine) and much lower cross -reac tivit y with other s (dete attila, gluli sine) . Not Available [employer] [address] [address] [place], [address], 08/20/2021 15:24:37 08/17/19 22 08/20/2021 DHEA SULFA TE DHEA sulfate 56 mcg/d L - normal DHEA- S value s fall with advan cing age. For refer ence, the refer ence inter vals for 31-40 year old patie nts are: Male: 93-41 5 mcg/d L Femal e: 19-23 7 mcg/d L Not Available [facility] [address] [place], [address], 08/20/2021 15:24:36 08/17/19 22 08/20/2021 THYRO ID PEROX IDASE ANTIB ODIES thyroid peroxidase antibodies 2 IU/mL <9 normal Not Available [facility] [address], [place], [address], 08/20/2021 15:24:36 08/17/19 22 08/20/2021 COMPR EHENS UCHE METAB OLIC PANEL glucose 91 mg/dL 65-99 normal Fasti ng refer ence inter suzanne Not Available [address], [address], 08/20/2021 15:24:35 08/17/19 22 08/20/2021 COMPR EHENS UCHE METAB OLIC PANEL urea nitrogen (BUN) 12 mg/dL 7-25 normal Not Available [address], [address], 08/20/2021 15:24:35 08/17/19 22 08/20/2021 COMPR EHENS UCHE METAB OLIC PANEL creatinine 0.79 mg/dL 0.50-1 .10 normal Not Available [address], [address], 08/20/2021 15:24:35 08/17/19 22 08/20/2021 COMPR EHENS UCHE METAB OLIC PANEL eGFR non-afr. belgian 89 mL/mi n/1.7 3m2 > or = 60 normal Not Available [address], [address], 08/20/2021 15:24:35 08/17/19 22 08/20/2021 COMPR EHENS UCHE METAB OLIC PANEL eGFR 103 mL/mi n/1.7 3m2 > or = 60 normal Not Available [address], [address], 08/20/2021 15:24:35 08/17/19 22 08/20/2021 COMPR EHENS UCHE METAB OLIC PANEL BUN/creatini ne ratio not applic able (calc ) 6-22 Not Available [address], [address], 08/20/2021 15:24:35 08/17/19 22 08/20/2021 COMPR EHENS UCHE METAB OLIC PANEL sodium 136 mmol/ L 135-14 6 normal Not Available [address], [address], 08/20/2021 15:24:35 08/17/19 22 08/20/2021 COMPR EHENS UCHE METAB OLIC PANEL potassium 4.2 mmol/ L 3.5-5. 3 normal Not Available [address], [address], 08/20/2021 15:24:35 08/17/19 22 08/20/2021 COMPR EHENS UCHE METAB OLIC PANEL chloride 102 mmol/ L 98-110 normal Not Available [address], [address], 08/20/2021 15:24:35 08/17/19 22 08/20/2021 COMPR EHENS UCHE METAB OLIC PANEL carbon dioxide 26 mmol/ L 20-32 normal Not Available [address], [address], 08/20/2021 15:24:35 08/17/19 22 08/20/2021 COMPR EHENS UCHE METAB OLIC PANEL calcium 9.4 mg/dL 8.6-10 .2 normal Not Available [address], [address], 08/20/2021 15:24:35 08/17/19 22 08/20/2021 COMPR EHENS UCHE METAB OLIC PANEL protein, total 7.5 g/dL 6.1-8. 1 normal Not Available [address], [address], 08/20/2021 15:24:35 08/17/19 22 08/20/2021 COMPR EHENS UCHE METAB OLIC PANEL albumin 4.1 g/dL 3.6-5. 1 normal Not Available [address], [address], 08/20/2021 15:24:35 08/17/19 22 08/20/2021 COMPR EHENS UCHE METAB OLIC PANEL globulin 3.4 g/dL_ (calc ) 1.9-3. 7 normal Not Available [address], [address], 08/20/2021 15:24:35 08/17/19 22 08/20/2021 COMPR EHENS UCHE METAB OLIC PANEL AST 19 U/L 10-35 normal Not Available [address], [address], 08/20/2021 15:24:35 08/17/19 22 08/20/2021 COMPR EHENS UCHE METAB OLIC PANEL albumin/glob ulin ratio 1.2 (calc ) 1.0-2. 5 normal Not Available [address], [address], 08/20/2021 15:24:35 08/17/19 22 08/20/2021 COMPR EHENS UCHE METAB OLIC PANEL bilirubin, total 0.7 mg/dL 0.2-1. 2 normal Not Available [address], [address], 08/20/2021 15:24:35 08/17/19 22 08/20/2021 COMPR EHENS UCHE METAB OLIC PANEL alkaline phosphatase 82 U/L 31-125 normal Not Available [facility] [address], [address], 08/20/2021 15:24:35 08/17/19 22 08/20/2021 COMPR EHENS UCHE METAB OLIC PANEL ALT 15 U/L 6-29 normal Not Available [address], [address], 08/20/2021 15:24:35 08/17/19 22 08/20/2021 LIPID PANEL , STAND LURDES cholesterol, total 152 mg/dL <200 normal Not Available [address], [address], 08/20/2021 15:24:35 08/17/19 22 08/20/2021 LIPID PANEL , STAND LURDES HDL cholesterol 43 mg/dL > or = 50 low Not Available [address] [address] [place], [address], 08/20/2021 15:24:35 08/17/19 22 08/20/2021 LIPID PANEL , STAND LURDES triglyceride s 125 mg/dL <150 normal Not Available [address], [address], 08/20/2021 15:24:35 08/17/19 22 08/20/2021 LIPID PANEL , STAND LURDES LDL-choleste rol 86 mg/dL _(jenna c) normal Refer ence range : <100 Richard able range <100 mg/dL for prima ry preve ntion ; <70 mg/dL for patie nts with CHD or diabe tic patie nts with > or = 2 CHD risk facto rs. LDL-C is now calcu lated using the Karmen n-Hop kins calcu patricio n, which is a valid ated novel sean mittal accur acy than the Fried bobby equat ion in the estim ation of LDL-C . Karmen celaya SS et al. JOCELYNE. 2013; 310(1 9): 2061- 2068 (http ://ed ucati on.Qu Flex sanchezPlaynerys. com/f aq/FA Q164) Not Available [facility] [address] [place], [address], 08/20/2021 15:24:35 08/17/19 22 08/20/2021 LIPID PANEL , STAND LURDES chol/HDLC ratio 3.5 (calc ) <5.0 normal Not Available [facility] [address] [address] [address], [place], [address], 08/20/2021 15:24:35 08/17/19 22 08/20/2021 LIPID PANEL , STAND LURDES non HDL cholesterol 109 mg/dL _(jenna c) <130 normal For patie nts with diabe reg plus 1 major ASCVD risk facto r, treat ing to a non-H DL-C goal of <100 mg/dL (LDL- C of <70 mg/dL ) is consi dered a thera pelondon c optio n. Not Available [address], [address], 08/20/2021 15:24:35 08/17/19 22 08/20/2021 TESTO STERO NE, FREE, BIOAV AILAB LE AND TOTAL , MS albumin 4.4 g/dL 3.6-5. 1 Not Available [address], [address], 08/20/2021 15:24:34 08/17/19 22 08/20/2021 TESTO STERO NE, FREE, BIOAV AILAB LE AND TOTAL , MS sex hormone binding globulin 55.9 nmol/ L 17-124 Not Available [address], [address], 08/20/2021 15:24:34 08/17/19 22 08/20/2021 TESTO STERO NE, FREE, BIOAV AILAB LE AND TOTAL , MS testosterone , free 1.4 pg/mL 0.2-5. 0 Not Available [address], [address], 08/20/2021 15:24:34 08/17/19 22 08/20/2021 TESTO STERO NE, FREE, BIOAV AILAB LE AND TOTAL , MS testosterone ,bioavailabl e 2.8 NG/dL 0.5-8. 5 Not Available [address], [address], 08/20/2021 15:24:34 08/17/19 22 08/20/2021 TESTO STERO NE, FREE, BIOAV AILAB LE AND TOTAL , MS testosterone , total, MS 18 NG/dL 2-45 For addit ional infor werner matthew refer to https ://ed ucati on.qu estdi [employer]. com/f aq/FA Q165 (This link is being provi ded for infor daniel nal/e ducat ional purpo ses only. ) (Note ) This test was devel oped and its miles tical perfo rmanc e susan cteri stics have been deter mined by [employer]. It has not been clear ed or appro [place] by the FDA. This assay has been valid ated pursu ant to the CLIA regul ation s and is used for clini jenna purpo ses. F med fusio n [address] [facility] [address] [facility] [address] [phone] Samuel santiago MD Not Available [facility] [address] [address] [place], [address], 08/20/2021 15:24:34 08/17/19 22 08/20/2021 IRON, TIBC AND EDUARDO TIN PANEL ferritin 45 NG/mL 16-232 normal Not Available [facility] [address] [address] [place], [address], 08/20/2021 15:24:34 08/17/19 22 08/20/2021 IRON, TIBC AND EDUARDO TIN PANEL iron, total 61 mcg/d L 40-190 normal Not Available [facility] [address] [address] [place], [address], 08/20/2021 15:24:34 08/17/19 22 08/20/2021 IRON, TIBC AND EDUARDO TIN PANEL iron binding capacity 316 mcg/d L_(ca lc) 250-45 0 normal Not Available [facility] [address] [address] [place], [address], 08/20/2021 15:24:34 08/17/19 22 08/20/2021 IRON, TIBC AND EDUARDO TIN PANEL % saturation 19 %_(ca lc) 16-45 normal Not Available [address] [address] [place], [address], 08/20/2021 15:24:34 10/30/19 22 11/06/2021 TSH TSH 0.01 mIU/L low Refer ence Range > or = 20 Years 0.40- 4.50 Pregn lorna Range s First trime ster 0.26- 2.66 Secon d trime ster 0.55- 2.73 Third trime ster 0.43- 2.91 Not Available [address] [address] [place], [address], 11/06/2021 09:37:50 10/30/19 22 11/06/2021 T4, FREE T4, free 1.4 NG/dL 0.8-1. 8 normal Not Available [address] [address] [place], [address], 11/06/2021 09:37:50 10/30/19 22 11/06/2021 THYRO ID PEROX IDASE ANTIB ODIES thyroid peroxidase antibodies 1 IU/mL <9 normal Not Available [address] [address] [place], [address], 11/06/2021 09:37:49 10/30/19 22 11/06/2021 THYRO GLOBU SHIRA, LC/MS /MS thyroglobuli n, lc/MS/MS <0.4 NG/mL Refer ence Range : Athyr otic: <0.4 Refer ence range appli es to diffe renti ated thyro id cance r patie nts follo wing treat ment. The prese nce of measu rable thyro globu shira indic ates the prese nce of thyro globu shira-p roduc ing thyro id tissu e. Clini jenna corre latio n is advis ed. This Thyro globu shira test was perfo rmed by erika torres mass spect romet ry (LC/M S/MS) and does provi de quant itati ve measu remen ts of thyro globu shira in the prese nce of anti- Tg antib odies . Value s obtai steph from diffe rent assay metho ds canno t be used inter mary eably . Thyro globu shira level s, regar dless of value , shoul d not be inter prete d as absol pauma evide nce of the prese nce or absen ce of disea se. This test was devel oped and its miles tical perfo rmanc e susan cteri stics have been deter mined by [facility] christopher Simpsoni anue Alexander joyce . It has not been clear ed or appro [place] by FDA. This assay has been valid ated pursu ant to the CLIA regul ation s and is used for clini jenna purpo ses. Not Available [facility] [address], [address], 11/06/2021 09:37:48 10/30/19 22 11/06/2021 T3, FREE T3, free 4.4 pg/mL 2.3-4. 2 high Not Available [facility] [address], [address], 11/06/2021 09:37:51 12/28/19 22 01/03/2022 T3, FREE T3, free 4.1 pg/mL 2.3-4. 2 normal Not Available [facility] [address], [address], 01/03/2022 09:49:18 12/28/19 22 01/03/2022 TSH TSH 0.01 mIU/L low Refer ence Range > or = 20 Years 0.40- 4.50 Pregn lorna Range s First trime ster 0.26- 2.66 Secon d trime ster 0.55- 2.73 Third trime ster 0.43- 2.91 Not Available [employer] [address] [place], [address], 01/03/2022 09:49:17 12/28/19 22 01/03/2022 T4, FREE T4, free 1.3 NG/dL 0.8-1. 8 normal Not Available [facility] [address] [address] [place], [address], 01/03/2022 09:49:17 12/28/19 22 01/03/2022 THYRO ID PEROX IDASE ANTIB ODIES thyroid peroxidase antibodies 2 IU/mL <9 normal Not Available [facility] [address] [address] [place], [address], 01/03/2022 09:49:17 12/28/19 22 01/03/2022 THYRO GLOBU SHIRA, LC/MS /MS thyroglobuli n, lc/MS/MS <0.4 NG/mL Refer ence Range : Athyr otic: <0.4 Refer ence range appli es to diffe renti ated thyro id cance r patie nts follo wing treat ment. The prese nce of measu rable thyro globu shira indic ates the prese nce of thyro globu shira-p roduc ing thyro id tissu e. Clini jenna corre latio n is advis ed. This Thyro globu shira test was perfo rmed by erika m mass spect romet ry (LC/M S/MS) and does provi de quant itati ve measu remen ts of thyro globu shira in the prese nce of anti- Tg antib odies . Value s obtai steph from diffe rent assay metho ds canno t be used inter mary eably . Thyro globu shira level s, regar dless of value , shoul d not be inter prete d as absol pauma evide nce of the prese nce or absen ce of disea se. This test was devel oped and its miles tical perfo rmanc e susan cteri stics have been deter mined by [facility] [employer] [place] [employer] . It has not been clear ed or appro [place] by FDA. This assay has been valid ated pursu ant to the CLIA regul ation s and is used for clini jenna purpo ses. Not Available [address], [address], 01/03/2022 09:49:16 12/28/19 22 01/03/2022 COMPR EHENS UCHE METAB OLIC PANEL BUN/creatini ne ratio not applic able (calc ) 6-22 Not Available [address], [address], 01/03/2022 09:49:16 12/28/19 22 01/03/2022 COMPR EHENS UCHE METAB OLIC PANEL glucose 87 mg/dL 65-99 normal Fasti ng refer ence inter suzanne Not Available [address], [address], 01/03/2022 09:49:16 12/28/19 22 01/03/2022 COMPR EHENS UCHE METAB OLIC PANEL urea nitrogen (BUN) 13 mg/dL 7-25 normal Not Available [address], [address], 01/03/2022 09:49:16 12/28/19 22 01/03/2022 COMPR EHENS UCHE METAB OLIC PANEL creatinine 0.75 mg/dL 0.50-0 .99 normal Not Available [address], [address], 01/03/2022 09:49:16 12/28/19 22 01/03/2022 COMPR EHENS UCHE METAB OLIC PANEL eGFR 99 mL/mi n/1.7 3m2 > or = 60 normal The eGFR is based on the CKD-E PI 2020 equat ion. To calcu late the new eGFR from a previ ous Creat inine or Cysta tin C resul t, go to https ://ramy bose.o nacho/mary george s/ kdoqi /gfr% 5Fcal culat or Not Available [address], [address], 01/03/2022 09:49:16 12/28/19 22 01/03/2022 COMPR EHENS UCHE METAB OLIC PANEL sodium 139 mmol/ L 135-14 6 normal Not Available [address], [address], 01/03/2022 09:49:16 12/28/19 22 01/03/2022 COMPR EHENS UCHE METAB OLIC PANEL potassium 4.3 mmol/ L 3.5-5. 3 normal Not Available [address], [address], 01/03/2022 09:49:16 12/28/19 22 01/03/2022 COMPR EHENS UCHE METAB OLIC PANEL chloride 104 mmol/ L 98-110 normal Not Available [address], [address], 01/03/2022 09:49:16 12/28/19 22 01/03/2022 COMPR EHENS UCHE METAB OLIC PANEL carbon dioxide 28 mmol/ L 20-32 normal Not Available [address], [address], 01/03/2022 09:49:16 12/28/19 22 01/03/2022 COMPR EHENS UCHE METAB OLIC PANEL calcium 9.9 mg/dL 8.6-10 .2 normal Not Available [address], [address], 01/03/2022 09:49:16 12/28/19 22 01/03/2022 COMPR EHENS UCHE METAB OLIC PANEL protein, total 7.5 g/dL 6.1-8. 1 normal Not Available [address], [address], 01/03/2022 09:49:16 12/28/19 22 01/03/2022 COMPR EHENS UCHE METAB OLIC PANEL albumin 4.2 g/dL 3.6-5. 1 normal Not Available [address], [address], 01/03/2022 09:49:16 12/28/19 22 01/03/2022 COMPR EHENS UCHE METAB OLIC PANEL globulin 3.3 g/dL_ (calc ) 1.9-3. 7 normal Not Available [address], [address], 01/03/2022 09:49:16 12/28/19 22 01/03/2022 COMPR EHENS UCHE METAB OLIC PANEL albumin/glob ulin ratio 1.3 (calc ) 1.0-2. 5 normal Not Available [address], [address], 01/03/2022 09:49:16 12/28/19 22 01/03/2022 COMPR EHENS UCHE METAB OLIC PANEL bilirubin, total 0.8 mg/dL 0.2-1. 2 normal Not Available [address], [address], 01/03/2022 09:49:16 12/28/19 22 01/03/2022 COMPR EHENS UCHE METAB OLIC PANEL alkaline phosphatase 91 U/L 31-125 normal Not Available [address], [address], 01/03/2022 09:49:16 12/28/19 22 01/03/2022 COMPR EHENS UCHE METAB OLIC PANEL AST 18 U/L 10-35 normal Not Available [address], [address], 01/03/2022 09:49:16 12/28/19 22 01/03/2022 COMPR EHENS UCHE METAB OLIC PANEL ALT 15 U/L 6-29 normal Not Available [address] [place], [address], 01/03/2022 09:49:16 03/28/2003/30/2022 TSH+F REE T4 TSH <0.01 mIU/L low Refer ence Range > or = 20 Years 0.40- 4.50 Pregn lorna Range s First trime ster 0.26- 2.66 Secon d trime ster 0.55- 2.73 Third trime ster 0.43- 2.91 Not Available [address] [address] [place], [address], 03/30/2022 21:41:44 03/28/20 22 03/30/2022 TSH+F REE T4 T4, free 1.3 NG/dL 0.8-1. 8 normal Not Available [address] [address] [place], [address], 03/30/2022 21:41:44 03/28/20 22 03/30/2022 VITAM IN D,25- OH,TO TARYN,I A vitamin D,25-oh,tota l,ia 44 NG/mL 30-100 normal Vitam in D Statu s 25-OH Vitam in D: Defic iency : <20 ng/mL Insuf ficie ncy: 20 - 29 ng/mL Optim al: > or = 30 ng/mL For 25-OH Vitam in D testi ng on patie nts on D2-sheikh pplem entat ion and patie nts for whom quant itati on of D2 and D3 fract ions is requi red, the [facility](TM ) 25-OH VIT D, (D2,D 3), LC/MS /MS is recom jose d: order code 82945 (devante ents >2yrs ). See Note 1 Note 1 For addit ional infor werner matthew refer to http: //shahrzad Jackson stDia gnost ics.c om/fa q/FAQ 199 (This link is being provi ded for infor daniel madrigal/ tanisha champion purpo ses only. ) Not Available [facility] [address] [address] [place], [address], 03/30/2022 21:41:43 03/28/20 22 03/30/2022 T3, FREE T3, free 4.4 pg/mL 2.3-4. 2 high Not Available [facility] [address] [address] [place], [address], 03/30/2022 21:41:43 03/28/20 22 03/30/2022 THYRO GLOBU SHIRA PANEL thyroglobuli n antibodies <1 IU/mL < or = 1 normal Not Available [facility] [address] [address] [place], [address], 03/30/2022 21:41:42 03/28/20 22 03/30/2022 THYRO GLOBU SHIRA PANEL thyroglobuli n <0.1 NG/mL low Refer ence Range : Intac t Thyro id 2.8-4 0.9 Athyr otic <0.1 Note: Abnor mal adolfo ing is based on the refer ence inter suzanne for patie nts with intac t thyro id. This test was perfo rmed using the [employer] chemi lumin escen t metho d. Value s obtai steph from diffe rent assay metho ds canno t be used inter mary eably . Thyro globu shira level s, regar dless of value , shoul d not be inter prete d as absol pauma evide nce of the prese nce or absen ce of disea se. For addit ional infor werner matthew e refer to http: //shahrzad jackson stdia gnost ics.c om/fa q/FAQ (This link is being provi ded for infor daniel madrigal/ tanisha champion purpo ses only. ) Not Available [facility] [address] [address] [address] , [place], [address], 03/30/2022 21:41:42 03/28/20 22 03/30/2022 VITAM IN B12 vitamin B12 612 pg/mL 200-11 00 normal Not Available [address], [address], 03/30/2022 21:41:42 03/28/20 22 03/30/2022 FOLAT E, SERUM folate, serum >24.0 NG/mL normal Refer ence Range Low: <3.4 Borde rline : 3.4-5 .4 Mayra l: >5.4 Not Available [address], [address], 03/30/2022 21:41:42 03/28/20 22 03/30/2022 COMPR EHENS UCHE METAB OLIC PANEL BUN/creatini ne ratio not applic able (calc ) 6-22 Not Available [address], [address], 03/30/2022 21:41:41 03/28/20 22 03/30/2022 COMPR EHENS UCHE METAB OLIC PANEL glucose 83 mg/dL 65-139 normal Non-f astin g refer ence inter suzanne Not Available [address], [address], 03/30/2022 21:41:41 03/28/20 22 03/30/2022 COMPR EHENS UCHE METAB OLIC PANEL urea nitrogen (BUN) 16 mg/dL 7-25 normal Not Available [address], [address], 03/30/2022 21:41:41 03/28/20 22 03/30/2022 COMPR EHENS UCHE METAB OLIC PANEL creatinine 0.74 mg/dL 0.50-0 .99 normal Not Available [address], [address], 03/30/2022 21:41:41 03/28/20 22 03/30/2022 COMPR EHENS UCHE METAB OLIC PANEL eGFR 100 mL/mi n/1.7 3m2 > or = 60 normal The eGFR is based on the CKD-E PI 2020 equat ion. To calcu late the new eGFR from a previ ous Creat inine or Cysta jada mancia, go to https ://ramy griffith/mary george s/ kdoqi /gfr% 5Fcal culat or Not Available [address] [address] [place], [address], 03/30/2022 21:41:41 03/28/20 22 03/30/2022 COMPR EHENS UCHE METAB OLIC PANEL sodium 140 mmol/ L 135-14 6 normal Not Available [address] [address] [place], [address], 03/30/2022 21:41:41 03/28/20 22 03/30/2022 COMPR EHENS UCHE METAB OLIC PANEL potassium 4.1 mmol/ L 3.5-5. 3 normal Not Available [address] [address] [place], [address], 03/30/2022 21:41:41 03/28/20 22 03/30/2022 COMPR EHENS UCHE METAB OLIC PANEL chloride 105 mmol/ L 98-110 normal Not Available [address] [address] [place], [address], 03/30/2022 21:41:41 03/28/20 22 03/30/2022 COMPR EHENS UCHE METAB OLIC PANEL carbon dioxide 30 mmol/ L 20-32 normal Not Available [address] [address] [place], [address], 03/30/2022 21:41:41 03/28/20 22 03/30/2022 COMPR EHENS UCHE METAB OLIC PANEL calcium 9.7 mg/dL 8.6-10 .2 normal Not Available [address] [address] [place], [address], 03/30/2022 21:41:41 03/28/20 22 03/30/2022 COMPR EHENS UCHE METAB OLIC PANEL protein, total 7.2 g/dL 6.1-8. 1 normal Not Available [address], [address], 03/30/2022 21:41:41 03/28/20 22 03/30/2022 COMPR EHENS UCHE METAB OLIC PANEL albumin 4.1 g/dL 3.6-5. 1 normal Not Available [address], [address], 03/30/2022 21:41:41 03/28/20 22 03/30/2022 COMPR EHENS UCHE METAB OLIC PANEL globulin 3.1 g/dL_ (calc ) 1.9-3. 7 normal Not Available [address], [address], 03/30/2022 21:41:41 03/28/20 22 03/30/2022 COMPR EHENS UCHE METAB OLIC PANEL albumin/glob ulin ratio 1.3 (calc ) 1.0-2. 5 normal Not Available [address], [address], 03/30/2022 21:41:41 03/28/20 22 03/30/2022 COMPR EHENS UCHE METAB OLIC PANEL bilirubin, total 1.1 mg/dL 0.2-1. 2 normal Not Available [address], [address], 03/30/2022 21:41:41 03/28/20 22 03/30/2022 COMPR EHENS UCHE METAB OLIC PANEL alkaline phosphatase 100 U/L 31-125 normal Not Available [address], [address], 03/30/2022 21:41:41 03/28/20 22 03/30/2022 COMPR EHENS UCHE METAB OLIC PANEL AST 16 U/L 10-35 normal Not Available [facility] [address] [place], [address], 03/30/2022 21:41:41 03/28/20 22 03/30/2022 COMPR EHENS UCHE METAB OLIC PANEL ALT 14 U/L 6-29 normal Not Available [facility] [address] [address] [place], [address], 03/30/2022 21:41:41 07/04/19 23 07/06/2022 TSH+F REE T4 TSH 0.01 mIU/L low Refer ence Range > or = 20 Years 0.40- 4.50 Pregn lorna Range s First trime ster 0.26- 2.66 Secon d trime ster 0.55- 2.73 Third trime ster 0.43- 2.91 Not Available [address] [address] [place], [address], 07/06/2022 16:08:06 07/04/19 23 07/06/2022 TSH+F REE T4 T4, free 1.3 NG/dL 0.8-1. 8 normal Not Available [address], [address], 07/06/2022 16:08:06 07/04/19 23 07/06/2022 VITAM IN D,25- OH,TO TARYN,I A vitamin D,25-oh,tota l,ia 47 NG/mL 30-100 normal Vitam in D Statu s 25-OH Vitam in D: Defic iency : <20 ng/mL Insuf ficie ncy: 20 - 29 ng/mL Optim al: > or = 30 ng/mL For 25-OH Vitam in D testi ng on patie nts on D2-sheikh pplem entat ion and patie nts for whom quant itati on of D2 and D3 fract ions is requi red, the [facility](TM ) 25-OH VIT D, (D2,D 3), LC/MS /MS is recom jose d: order code 84898 (devante ents >2yrs ). See Note 1 Note 1 For addit ional infor werner matthew e refer to http: //[facility] n.Que stDia gnost ics.c om/fa q/FAQ 199 (This link is being provi ded for infor matio nal/ educa kristin l purpo ses only. ) Not Available [facility] [address] [address] [place], [address], 07/06/2022 16:08:06 07/04/19 23 07/06/2022 T3, FREE T3, free 4.0 pg/mL 2.3-4. 2 normal Not Available [facility] [address] [address] [place], [address], 07/06/2022 16:08:05 07/04/19 23 07/06/2022 THYRO GLOBU SHIRA PANEL thyroglobuli n antibodies <1 IU/mL < or = 1 normal Not Available [address] [address] [place], [address], 07/06/2022 16:08:05 07/04/19 23 07/06/2022 THYRO GLOBU SHIRA PANEL thyroglobuli n <0.1 NG/mL low Refer ence Range : Intac t Thyro id 2.8-4 0.9 Athyr otic <0.1 Note: Abnor mal adolfo ing is based on the refer ence inter suzanne for patie nts with intac t thyro id. This test was perfo rmed using the [employer] chemi lumin escen t metho d. Value s obtai steph from diffe rent assay metho ds canno t be used inter mary eably . Thyro globu shira level s, regar dless of value , shoul d not be inter prete d as absol pauma evide nce of the prese nce or absen ce of disea se. For addit ional infor werner matthew e refer to http: //[facility] catio n.que stdia gnost ics.c om/fa q/FAQ 202 (This link is being provi ded for infor matio nal/ educa kristin l purpo ses only. ) Not Available [address], [address], 07/06/2022 16:08:05 07/04/19 23 07/06/2022 VITAM IN B12/F OLATE , SERUM PANEL vitamin B12 649 pg/mL 200-11 00 normal Not Available [address], [address], 07/06/2022 16:08:04 07/04/19 23 07/06/2022 VITAM IN B12/F OLATE , SERUM PANEL folate, serum 20.3 NG/mL normal Refer ence Range Low: <3.4 Borde rline : 3.4-5 .4 Mayra l: >5.4 Not Available [address], [address], 07/06/2022 16:08:04 07/04/19 23 07/06/2022 COMPR EHENS UCHE METAB OLIC PANEL sodium 138 mmol/ L 135-14 6 normal Not Available [address], [address], 07/06/2022 16:08:04 07/04/19 23 07/06/2022 COMPR EHENS UCHE METAB OLIC PANEL glucose 115 mg/dL 65-139 normal Non-f astin g refer ence inter suzanne Not Available [address], [address], 07/06/2022 16:08:04 07/04/19 23 07/06/2022 COMPR EHENS UCHE METAB OLIC PANEL urea nitrogen (BUN) 14 mg/dL 7-25 normal Not Available [address], [address], 07/06/2022 16:08:04 07/04/19 23 07/06/2022 COMPR EHENS UCHE METAB OLIC PANEL creatinine 0.75 mg/dL 0.50-0 .99 normal Not Available [facility] [place] [id number] [address]ratio n, [place], [address], 07/06/2022 16:08:04 07/04/19 23 07/06/2022 COMPR EHENS UCHE METAB OLIC PANEL eGFR 99 mL/mi n/1.7 3m2 > or = 60 normal The eGFR is based on the CKD-E PI 2020 equat ion. To calcu late the new eGFR from a previ ous Creat inine or Cysta tin C resul t, go to https :[email or web address] [email or web address] [email or web address] nacho/pr ofess ional s/ kdoqi /gfr% 5Fcal culat or Not Available [address], [address], 07/06/2022 16:08:04 07/04/19 23 07/06/2022 COMPR EHENS UCHE METAB OLIC PANEL BUN/creatini ne ratio not applic able (calc ) 6-22 Not Available [address], [address], 07/06/2022 16:08:04 07/04/19 23 07/06/2022 COMPR EHENS UCHE METAB OLIC PANEL potassium 4.0 mmol/ L 3.5-5. 3 normal Not Available [address], [address], 07/06/2022 16:08:04 07/04/19 23 07/06/2022 COMPR EHENS UCHE METAB OLIC PANEL chloride 104 mmol/ L 98-110 normal Not Available [address], [address], 07/06/2022 16:08:04 07/04/19 23 07/06/2022 COMPR EHENS UCHE METAB OLIC PANEL carbon dioxide 25 mmol/ L 20-32 normal Not Available [address], [address], 07/06/2022 16:08:04 07/04/19 23 07/06/2022 COMPR EHENS UCHE METAB OLIC PANEL calcium 9.4 mg/dL 8.6-10 .2 normal Not Available [address], [address], 07/06/2022 16:08:04 07/04/19 23 07/06/2022 COMPR EHENS UCHE METAB OLIC PANEL protein, total 6.9 g/dL 6.1-8. 1 normal Not Available [address], [address], 07/06/2022 16:08:04 07/04/19 23 07/06/2022 COMPR EHENS UCHE METAB OLIC PANEL albumin 4.0 g/dL 3.6-5. 1 normal Not Available [address], [address], 07/06/2022 16:08:04 07/04/19 23 07/06/2022 COMPR EHENS UCHE METAB OLIC PANEL globulin 2.9 g/dL_ (calc ) 1.9-3. 7 normal Not Available [address], [address], 07/06/2022 16:08:04 07/04/19 23 07/06/2022 COMPR EHENS UCHE METAB OLIC PANEL albumin/glob ulin ratio 1.4 (calc ) 1.0-2. 5 normal Not Available [address], [address], 07/06/2022 16:08:04 07/04/19 23 07/06/2022 COMPR EHENS UCHE METAB OLIC PANEL bilirubin, total 1.3 mg/dL 0.2-1. 2 high Not Available [address], [address], 07/06/2022 16:08:04 07/04/19 23 07/06/2022 COMPR EHENS UCHE METAB OLIC PANEL alkaline phosphatase 91 U/L 31-125 normal Not Available [address], [address], 07/06/2022 16:08:04 07/04/19 23 07/06/2022 COMPR EHENS UCHE METAB OLIC PANEL AST 19 U/L 10-35 normal Not Available [address], [address], 07/06/2022 16:08:04 07/04/19 23 07/06/2022 COMPR EHENS UCHE METAB OLIC PANEL ALT 16 U/L 6-29 normal Not Available [address], [address], 07/06/2022 16:08:04 10/11/19 23 10/17/2022 IRON, TIBC AND EDUARDO TIN PANEL iron, total 59 mcg/d L 40-190 normal Not Available [address], [address], 10/17/2022 10:57:44 10/11/19 23 10/17/2022 IRON, TIBC AND EDUARDO TIN PANEL iron binding capacity 293 mcg/d L_(ca lc) 250-45 0 normal Not Available [address], [address], 10/17/2022 10:57:44 10/11/19 23 10/17/2022 IRON, TIBC AND EDUARDO TIN PANEL % saturation 20 %_(ca lc) 16-45 normal Not Available [address], [address], 10/17/2022 10:57:44 10/11/19 23 10/17/2022 IRON, TIBC AND EDUARDO TIN PANEL ferritin 100 NG/mL 16-232 normal Not Available [address], [address], 10/17/2022 10:57:44 10/11/19 23 10/17/2022 COMPR EHENS UCHE METAB OLIC PANEL glucose 91 mg/dL 65-99 normal Fasti ng refer ence inter suzanne Not Available [address], [address], 10/17/2022 10:57:45 10/11/19 23 10/17/2022 COMPR EHENS UCHE METAB OLIC PANEL urea nitrogen (BUN) 13 mg/dL 7-25 normal Not Available [address], [address], 10/17/2022 10:57:45 10/11/19 23 10/17/2022 COMPR EHENS UCHE METAB OLIC PANEL creatinine 0.74 mg/dL 0.50-0 .99 normal Not Available [address], [address], 10/17/2022 10:57:45 10/11/19 23 10/17/2022 COMPR EHENS UCHE METAB OLIC PANEL eGFR 100 mL/mi n/1.7 3m2 > or = 60 normal The eGFR is based on the CKD-E PI 2020 dottie wallace. To calcu late the new eGFR from a previ ous Creat inine or Cysta tin C resul t, go to https ://ramy edwards.lobito bose.o nacho/mary george s/ kdoqi /gfr% 5Fcal culat or Not Available [address], [address], 10/17/2022 10:57:45 10/11/19 23 10/17/2022 COMPR EHENS UCHE METAB OLIC PANEL BUN/creatini ne ratio NOT APPLIC ABLE (calc ) 6-22 Not Available [address], [address], 10/17/2022 10:57:45 10/11/19 23 10/17/2022 COMPR EHENS UCHE METAB OLIC PANEL sodium 139 mmol/ L 135-14 6 normal Not Available [address] [place], [address], 10/17/2022 10:57:45 10/11/19 23 10/17/2022 COMPR EHENS UCHE METAB OLIC PANEL potassium 4.1 mmol/ L 3.5-5. 3 normal Not Available [address], [address], 10/17/2022 10:57:45 10/11/19 23 10/17/2022 COMPR EHENS UCHE METAB OLIC PANEL chloride 106 mmol/ L 98-110 normal Not Available [address], [address], 10/17/2022 10:57:45 10/11/19 23 10/17/2022 COMPR EHENS UCHE METAB OLIC PANEL carbon dioxide 27 mmol/ L 20-32 normal Not Available [address], [address], 10/17/2022 10:57:45 10/11/19 23 10/17/2022 COMPR EHENS UCHE METAB OLIC PANEL calcium 9.4 mg/dL 8.6-10 .2 normal Not Available [address], [address], 10/17/2022 10:57:45 10/11/19 23 10/17/2022 COMPR EHENS UCHE METAB OLIC PANEL protein, total 7.5 g/dL 6.1-8. 1 normal Not Available [address], [address], 10/17/2022 10:57:45 10/11/19 23 10/17/2022 COMPR EHENS UCHE METAB OLIC PANEL albumin 4.1 g/dL 3.6-5. 1 normal Not Available [address], [address], 10/17/2022 10:57:45 10/11/19 23 10/17/2022 COMPR EHENS UCHE METAB OLIC PANEL globulin 3.4 g/dL_ (calc ) 1.9-3. 7 normal Not Available [address], [address], 10/17/2022 10:57:45 10/11/19 23 10/17/2022 COMPR EHENS UCHE METAB OLIC PANEL albumin/glob ulin ratio 1.2 (calc ) 1.0-2. 5 normal Not Available [address], [address], 10/17/2022 10:57:45 10/11/19 23 10/17/2022 COMPR EHENS UCHE METAB OLIC PANEL bilirubin, total 0.7 mg/dL 0.2-1. 2 normal Not Available [address], [address], 10/17/2022 10:57:45 10/11/19 23 10/17/2022 COMPR EHENS UCHE METAB OLIC PANEL alkaline phosphatase 82 U/L 31-125 normal Not Available [address], [address], 10/17/2022 10:57:45 10/11/19 23 10/17/2022 COMPR EHENS UCHE METAB OLIC PANEL AST 21 U/L 10-35 normal Not Available [address], [address], 10/17/2022 10:57:45 10/11/19 23 10/17/2022 COMPR EHENS UCHE METAB OLIC PANEL ALT 17 U/L 6-29 normal Not Available [address], [address], 10/17/2022 10:57:45 10/11/19 23 10/17/2022 PROGE STERO NE, LC/MS progesterone , lc/MS <0.1 NG/mL Adult Femal e Refer ence Range s for Proge stero ne: Pre-M enopa usal Mid Folli cular : < or = 0.3 ng/mL Pre-M enopa usal Surge : 0.1-1 .5 ng/mL Pre-M enopa usal Mid Lutea l: 6.7-2 2.2 ng/mL Postm enopa usal Phase : < or = 0.2 ng/mL This test was devel oped and its miles tical perfo rmanc e susan cteri stics have been deter mined by [facility] [employer] [employer] [place] Gabrielkermit trannarendra . It has not been clear ed or appro [place] by FDA. This assay has been valid ated pursu ant to the CLIA regul ation s and is used for clini jenna purpo ses. Not Available [employer] [facility] [address] [place], [address], 10/17/2022 10:57:46 10/11/1910/17/2022 DHEA SULFA TE DHEA sulfate 49 mcg/d L 15-205 normal DHEA- S value s fall with advan cing age. For refer ence, the refer ence inter vals for 31-40 year old patie nts are: Male: 93-41 5 mcg/d L Femal e: 19-23 7 mcg/d L Not Available [employer] [facility] [address] [place], [address], 10/17/2022 10:57:46 10/11/1910/17/2022 INSUL IN insulin 17.0 uIU/m L normal Refer ence Range < or = 18.4 Risk: Optim al < or = 18.4 Moder ate NA High >18.4 Adult cardi ovasc ular event risk categ ory cut point s (opti mal, moder ate, high) are based on Insul in Refer ence Inter suzanne studi es perfo rmed at [facility] in 2021. Not Available [employer] [facility] [address] [place], [address], 10/17/2022 10:57:47 10/11/19 23 10/17/2022 ESTRA DIOL estradiol 15 pg/mL normal Refer ence Range Folli cular Phase : 19-14 4 Mid-C ycle: 64-35 7 Lutea l Phase : 56-21 4 Postm enopa usal: < or = 31 Refer ence range estab lishe d on post- puber taryn patie nt popul ation . No pre-p ubert al refer ence range estab lishe d using this assay . For any patie nts for whom low Estra diol level s are antic ipate d (e.g. males , pre-p ubert al child adore and hypog onada l/pos t-men opaus al femal es), the [facility] Estra diol, Ultra sensi tive, LCMSM S assay is recom jose d (orde r code 17568 ). Pleas e note: patie nts being treat ed with the drug fulve stran t (Fasl odex( R)) have demon strat ed signi fican t inter feren ce in immun oassa y metho ds for estra diol measu remen t. The cross react ivity could lead to false ly eleva jaime estra diol test resul ts leadi ng to an inapp ropri ate clini jenna asses sment of estro gen statu s. [facility] order code 20169 -Estr adiol , Ultra sensi tive LC/MS /MS demon strat es negli gible cross react ivity with fulve stran t. Not Available [employer] [facility] [address] [place], [address], 10/17/2022 10:57:48 10/11/19 23 10/17/2022 VITAM IN B12/F OLATE , SERUM PANEL vitamin B12 729 pg/mL 200-11 00 normal Not Available [employer] [facility] [address] [place], [address], 10/17/2022 10:57:49 10/11/19 23 10/17/2022 VITAM IN B12/F OLATE , SERUM PANEL folate, serum >24.0 NG/mL normal Refer ence Range Low: <3.4 Borde rline : 3.4-5 .4 Mayra l: >5.4 Not Available [address] [address] [place], [address], 10/17/2022 10:57:49 10/11/19 23 10/17/2022 T3, FREE T3, free 3.2 pg/mL 2.3-4. 2 normal Not Available [facility] [address] [address] [place], [address], 10/17/2022 10:57:49 10/11/1910/17/2022 THYRO GLOBU SHIRA PANEL thyroglobuli n antibodies <1 IU/mL < or = 1 Not Available [address] [address] [place], [address], 10/17/2022 10:57:50 10/11/1910/17/2022 THYRO GLOBU SHIRA PANEL thyroglobuli n <0.1 NG/mL low Refer ence Range : Intac t Thyro id 2.8-4 0.9 Athyr otic <0.1 Note: Abnor mal adolfo ing is based on the refer ence inter suzanne for patie nts with intac t thyro id. This test was perfo rmed using the [employer] chemi lumin escen t metho d. Value s obtai steph from diffe rent assay metho ds canno t be used inter mary eably . Thyro globu shira level s, regar dless of value , shoul d not be inter prete d as absol pauma evide nce of the prese nce or absen ce of disea se. For addit ional infor werner matthew e refer to http: //shahrzad combsque stdia gnost ics.c om/fa q/FAQ (This link is being provi ded for infor daniel madrigal/ educberenice champion purpo ses only. ) Not Available [employer] [address] [address] [place], [address], 10/17/2022 10:57:50 10/11/19 23 10/17/2022 TSH+F REE T4 TSH 0.03 mIU/L low Refer ence Range > or = 20 Years 0.40- 4.50 Pregn lorna Range s First trime ster 0.26- 2.66 Secon d trime ster 0.55- 2.73 Third trime ster 0.43- 2.91 Not Available [facility] [address] [place], [address], 10/17/2022 10:57:51 10/11/19 23 10/17/2022 TSH+F REE T4 T4, free 1.0 NG/dL 0.8-1. 8 normal Not Available [facility] [address] [address] , [place], [address], 10/17/2022 10:57:51 10/11/19 23 10/17/2022 HEMOG LOBIN A1C hemoglobin A1C 5.6 %_of_ total _HGB <5.7 normal For the purpo se of screamy plunkett for the prese nce of diabe reg: <5.7% Consi stent with the absen ce of diabe reg 5.7-6 .4% Consi stent with incre ased risk for diabe reg (pred iabet es) > or =6.5% Consi stent with diabe reg This assay resul t is consi stent with a decre ased risk of diabe reg. Curre ntly, no conse nsus exist s nitin wahl use of hemog lobin A1c for diagn osis of diabe reg in child adore. Accor ding to Ameri can Diabe reg Assoc iatio n (ADA) guide lines , hemog lobin A1c <7.0% repre sents optim al contr ol in non-p regna nt diabe tic patie nts. Diffe rent metri cs may apply to speci fic patie nt popul ation s. Stand ards of Medic al Care in Diabe reg(A DA). Not Available [facility] [address] [place], [address], 10/17/2022 10:57:52 10/11/19 23 10/17/2022 TESTO STERO NE, FREE (DIAL YSIS) AND TOTAL ,MS testosterone , total, MS 16 NG/dL 2-45 For addit ional infor werner matthew refer to https ://ed ucati on.qu flex tompkins Corous360. com/f aq/FA Q165 (This link is being provi ded for infor daniel nal/e ducat ional purpo ses only. ) (Note ) This test was devel oped and its miles tical perfo rmanc e susan cteri stics have been deter mined by [employer]. It has not been clear ed or appro [place] by the FDA. This assay has been valid ated pursu ant to the CLIA regul ation s and is used for clini jenna purpo ses. Not Available [facility] [address] [place], [address], 10/17/2022 10:57:52 10/11/19 23 10/17/2022 TESTO STERO NE, FREE (DIAL YSIS) AND TOTAL ,MS testosterone , free 1.2 pg/mL 0.1-6. 4 (Note ) This test was devel oped and its miles tical perfo rmanc e susan cteri stics have been deter mined by [employer]. It has not been clear ed or appro [place] by the FDA. This assay has been valid ated pursu ant to the CLIA regul ation s and is used for clini jenna purpo ses. MDF med fusio n [address] [facility] [address] [place] [address] [phone] 00 Samuel santiago MD Not Available [facility] [address] [address], [place], [address], 10/17/2022 10:57:52 11/06/19 21 11/02/2020 US, neck, soft tissu e No observ ation record ed. [id number], [place], [address], 07/15/2022 02:32:41 Result Notes None recorded. Problems Name Problem SNOMED Code Status Onset Date Resolution Date Notes Provider Name and Address Organization Details Recorded Time Bronchitis 56038222 Completed Not Available [facility] 3 02:28:57 Depressive disorder 55666597 Active Not Available [facility] 3 02:28:57 Hypertensi ve disorder 13594035 Active Not Available [facility] 3 02:28:57 Memory impairment 644411381 Completed Not Available [facility] 3 02:28:57 Hypothyroi dism 29037498 Active Not Available [facility] 3 02:28:57 Anxiety 86890102 Active Not Available [facility] 3 02:28:57 Upper respirator y infection 75404291 Completed Not Available [facility] 3 02:28:58 Posterior rhinorrhea 41590896 Active Not Available [facility] 3 02:28:58 Conjunctiv itis 0070124 Completed Not Available [facility] 3 02:28:58 Postoperat uche hypothyroi dism 71816131 Active 2022 Ines German MD [address] [address], [place], [address] , [employer] [facility] 3 15:05:56 Vitamin B12 deficiency (non anemic) 17246760 Active 2022 Ines German MD [address] [address], [place], [address] , [employer] [facility] 3 15:08:11 Iron deficiency anemia 00920086 Active 2022 Ines German MD [address], [place], [address] , [employer] 3 15:08:22 Loss of hair 900851824 Active 2022 Ines German MD [address], [place], [address] , [employer] [facility] 3 15:09:10 Problem Notes None recorded. Procedures Surgical History Date Name Laterality Status Provider Name and Address Organization Details Recorded Time thyroidectomy completed Not Available [facility] 07/15/2022 02:26:28 Imaging Results Imaging Date Name Status LastModified by Organiz ation Details LastModified Time 11/02/2020 US, neck, soft tissue completed [id number] [address] [place] [address] [address], [place], [address], 07/15/2022 02:32:41 Procedure Notes None recorded. Medical Equipment None Reported. Allergies Allergen ID Allergen Name Allergen Category Reaction Reaction Severity Criticality Documentation Date Start Date Code Code System Note Provider Name and Address Organization Details Recorded Time 3125 Product containin g penicilli n (product) medicatio n rash Not available Not available 07/15/2022 29477 8001 SNOMED Not Available [facility] 02:32:26 Medications Name Sig Start Date Stop Date Status Note LastModified by Organization Details LastModified Time fluoxetin e 40 mg capsule TAKE 1 CAPSULE BY MOUTH ONCE DAILY active Not Available Not Available No t Available Euthyrox 175 mcg tablet Take 1 tablet every other day by oral route in the morning for 90 days. active Not Available Not Available No t Available bupropion HCl SR 150 mg tablet,12 hr sustained -release TK 1 T PO BID 07/20 completed Not Available Not Available Not Available Euthyrox 200 mcg tablet TAKE 1 TABLET BY MOUTH ONCE DAILY FOR 90 DAYS 03/03 completed Not Available Not Available Not Available clindamyc in HCl 300 mg capsule active Not Available Not Available Not Available azithromy clarke 250 mg tablet TAKE 2 TABLETS BY MOUTH ON DAY 1, AND THEN TAKE 1 TABLET BY MOUTH ONCE A DAY ON DAY 2 THROUGH DAY 5 03/03 completed Not Available Not Available Not Available Necon 35 (28) 1 mg-35 mcg tablet TK 1 T PO D. 10/30 completed Not Available Not Available Not Available phenazopy ridine 200 mg tablet TK 1 T PO TID AFTER MEALS PRF PAIN 10/30 completed Not Available Not Available Not Available metronida zole 0.75 % (37.5 mg/5 gram) vaginal gel INSERT ONE APPLICAT ORFUL VAGINALL Y ONCE DAILY AT BEDTIME FOR FIVE DAYS active Not Available Not Available No t Available Aplisol 5 tub. unit/0.1 mL intraderm al injection solution Take 0.1 mL by intrader mal route. active Not Available Not Available No t Available metronida zole 500 mg tablet TAKE 1 TABLET BY MOUTH TWICE DAILY FOR 7 DAYS active Not Available Not Available No t Available ciproflox acin 250 mg tablet 07/14 completed Not Available Not Available Not Available prochlorp erazine maleate 10 mg tablet 07/01 completed Not Available Not Available Not Available ciproflox acin 500 mg tablet 07/01 completed Not Available Not Available Not Available omeprazol e 40 mg capsule,d elayed release TK ONE C PO D 10/30 completed Not Available Not Available Not Available alprazola m 0.25 mg tablet TK ONE T PO TID PRN active Not Available Not Available No t Available dicyclomi ne 20 mg tablet 07/01 completed Not Available Not Available Not Available dexametha sone 1 mg tablet Take 1 tablet as needed by oral route at bedtime for 1 day. active take dexa tablet at 10 pm night before getting 8 am cortisol Not Available Not Available Not Available Euthyrox 150 mcg tablet Take 1 tablet every other day by oral route in the morning for 90 days. 04/01 completed Not Available Not Available Not Available oseltamiv ir 75 mg capsule 07/01 completed Not Available Not Available Not Available buspirone 10 mg tablet TAKE 1 & 1/2 (ONE & ONE-HALF ) TABLETS BY MOUTH ONCE DAILY IN THE MORNING AND 1 AT NOON AND 1 AT BEDTIME active Not Available Not Available No t Available clotrimaz ole-betam ethasone 1 %-0.05 % topical cream APPLY CREAM TO AFFECTED AREA TWICE DAILY FOR 2 WEEKS 09/28 completed Not Available Not Available Not Available lisinopri l 10 mg tablet TAKE 1 TABLET BY MOUTH EVERY DAY active Not Available Not Available No t Available promethaz ine 25 mg tablet 07/01 completed Not Available Not Available Not Available polymyxin B sulfate 10,000 unit-trim ethoprim 1 mg/mL eye drops active Not Available Not Available No t Available buspirone 7.5 mg tablet TAKE 1 TABLET BY MOUTH TWICE DAILY 07/01 completed Not Available Not Available Not Available hydrocodo ne 5 mg-acetam inophen 500 mg tablet active Not Available Not Available Not Available cyanocoba jason (vit B-12) 1,000 mcg sublingua l tablet Place 1 tablet every day by sublingu al route in the morning for 90 days. active Not Available Not Available No t Available lisinopri l 5 mg tablet TAKE 1 TABLET BY MOUTH ONCE DAILY active Not Available Not Available No t Available cefuroxim e axetil 500 mg tablet active Not Available Not Available Not Available albuterol sulfate HFA 90 mcg/actua tion aerosol inhaler Inhale 2 puffs every 4 hours by inhalati on route as directed for 30 days. 07/01 completed Not Available Not Available Not Available Vitamin D2 1,250 mcg (50,000 unit) capsule Take 1 capsule every week by oral route for 28 days. 08/02 completed OTC Not Available Not Available Not Available fluoxetin e 20 mg capsule TAKE 1 CAPSULE BY MOUTH ONCE DAILY IN THE MORNING AND AT NOON ADD TO 40MG DOSE active Not Available Not Available No t Available fluticaso ne propionat e 50 mcg/actua tion nasal spray,adis pension Inhale 2 sprays every day by intranas al route in the morning for 30 days. active Not Available Not Available No t Available levothyro xine 112 mcg tablet 08/12 completed Not Available Not Available Not Available buspirone 15 mg tablet 08/12 completed Not Available Not Available Not Available bupropion HCl SR 200 mg tablet,12 hr sustained -release TAKE 1 TABLET BY MOUTH TWICE DAILY active Not Available Not Available No t Available Synthroid 137 mcg tablet Take 1 tablet every day by oral route in the morning for 30 days. 11/14 completed Not Available Not Available Not Available bupropion HCl XL 300 mg 24 hr tablet, extended release TK 1 T PO QD 01/09 completed Not Available Not Available Not Available bupropion HCl XL 150 mg 24 hr tablet, extended release Take 1 tablet every day by oral route. active Not Available Not Available No t Available nitrofura ntoin monohydra te/macroc rystals 100 mg capsule TAKE 1 CAPSULE BY MOUTH EVERY 12 HOURS FOR 5 DAYS 09/28 completed Not Available Not Available Not Available Mirena 2019 active Not Available Not Available Not Avai lable sodium fluoride 1.1 %-potassi um nitrate 5 % dental paste 09/28 completed Not Available Not Available Not Available FeroSul 325 mg (65 mg iron) tablet TAKE 1 TABLET BY MOUTH ONCE DAILY active Not Available Not Available No t Available Tirosint 150 mcg capsule TAKE 1 CAPSULE BY MOUTH ONCE DAILY IN THE MORNING FOR 90 DAYS 2022 active Not Available Not Available Not Avai lable Tirosint 137 mcg capsule Take 1 capsule every day by oral route in the morning for 90 days. 01/09 completed Not Available Not Available Not Available Vitamin D3 50 mcg (2,000 unit) capsule Take 1 capsule every day by oral route. 2014 active Not Available Not Available Not Avai lable Fluzone Quad (P F) 60 mcg(15 mcgx4)/0. 5 mL intramusc ular syringe ADM 0.5ML IM UTD active Not Available Not Available No t Available Tirosint 175 mcg capsule TAKE 1 CAPSULE BY MOUTH ONCE DAILY IN THE MORNING 01/09 completed Not Available Not Available Not Available levothyro xine 200 mcg capsule Take 1 capsule every day by oral route for 90 days. 01/09 completed Not Available Not Available Not Available Flucelvax Quad (PF) 60 mcg (15 mcg x 4)/0.5 mL IM syringe ADM 0.5ML IM UTD active Not Available Not Available No t Available ID NOW COVID-19 Test Kit TEST DIRECTED active Not Available Not Available No t Available Afluria Qd (36 mos up)(PF)60 mcg (15 mcg x4)/0.5 mL IM syringe ADM 0.5ML IM UTD active Not Available Not Available No t Available Vitals Date Recorded Body mass index (BMI) Body height Oxygen saturation Oxygen saturation in Arterial blood by Pulse oximetry Heart rate Body temperature Body weight Systolic blood pressure Diastolic blood pressure Provider Name and Address Organization Details Last Updated DateTime 1 30.7 kg/m2 167.64 cm 99 % 99 % 88 /min 97.9 [degF] 47346.5 5 g 100 mm[Hg] 56 mm[Hg] Not Available [facility] 3 02:27:31 Date Recorded Body mass index (BMI) Body height Oxygen saturation Oxygen saturation in Arterial blood by Pulse oximetry Heart rate Respiratory rate Body temperature Body weight Systolic blood pressure Diastolic blood pressure Provider Name and Address Organization Details Last Updated DateTime 1 30.8 kg/m2 167.64 cm 99 % 99 % 85 /min 14 /min 98.1 [degF] 63563.1 4 g 120 mm[Hg] 80 mm[Hg] Not Available [facility] 3 02:27:31 Date Recorded Body mass index (BMI) Body height Oxygen saturation Oxygen saturation in Arterial blood by Pulse oximetry Heart rate Body temperature Body weight Systolic blood pressure Diastolic blood pressure Provider Name and Address Organization Details Last Updated DateTime 2 30.9 kg/m2 167.64 cm 98 % 98 % 96 /min 97.7 [degF] 08403.9 4 g 106 mm[Hg] 80 mm[Hg] Not Available [facility] 3 02:27:31 Date Recorded Body mass index (BMI) Body height Oxygen saturation Oxygen saturation in Arterial blood by Pulse oximetry Heart rate Body temperature Body weight Systolic blood pressure Diastolic blood pressure Provider Name and Address Organization Details Last Updated DateTime 2 30.6 kg/m2 167.64 cm 98 % 98 % 91 /min 97.7 [degF] 81446.1 1 g 105 mm[Hg] 70 mm[Hg] Not Available [facility] 3 02:27:31 Date Recorded Body height Body mass index (BMI) Body weight Body temperature Heart rate Systolic blood pressure Diastolic blood pressure Provider Name and Address Organization Details Last Updated DateTime 3 167.64 cm 31.7 kg/m2 99301.8 2 g 97.9 [degF] 85 /min 133 mm[Hg] 82 mm[Hg] LATOYA Chaudhary [place] - Isabell MS [employer] [facility] 3 14:44:11 Social History Question Answer Notes LastModified by Organizat ion Details LastModified Time Tobacco Smoking Status Never Smoker Not Available [facility] 07/15/2022 02:24:33 What Is Your Level Of Alcohol Consumption? Occasional [id number] Information not available 07/15/2022 What Is Your Level Of Caffeine Consumption? Moderate [id number] Information not available 07/15/2022 How Much Tobacco Do You Chew? None [id number] Information not available 07/15/2022 In The 14 Days Before Symptom Onset, Have You Had Close Contact With A Laboratory-confir med COVID-19 While That Case Was Ill? No [id number] Information not available 07/15/2022 In The 14 Days Before Symptom Onset, Have You Had Close Contact With A Person Who Is Under Investigation For COVID-19 While That Person Was Ill? No [id number] Information not available 07/15/2022 What Type Of Diet Are You Following? REGULAR [id number] Information not available 07/15/2022 Which Illicit Or Recreational Drugs Have You Used? None [id number] Information not available 07/15/2022 Do You Or Have You Ever Used E-cigarettes Or Vape? 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 [id number] Information not available 07/15/2022 Do You Or Have You Ever Used Smokeless Tobacco? Never Used Smokeless Tobacco MIGRATION.[id number] Information not available 07/15/2022 How Much Tobacco Do You Smoke? No MIGRATION.[id number] Information not available 07/15/2022 Have You Recently Traveled Abroad? No [id number] Information not available 07/15/2022 Do You Have Any Dietary Restrictions? No MIGRATION.[id number] Information not available 07/15/2022 Sex: Female Functional Status None recorded. Mental Status None recorded. Family History Relationship Description Onset Age of this Age Resolved Age Notes LastModified by Organization Details LastModified Time Mother History of thyroid disorder Mother s side [id number] Not available 07/15/2022 02:26:30 Father Heart disease [id number] Not available 07/15/2022 02:26:30 Father Malignant tumor of prostate [id number] Not available 07/15/2022 02:26:30 Notes:diabetes on mom's side Medical History Condition Response DEPRESSION (INCLUDING POST ) Y THYROID DISEASE Y HYPERTENSION Y Gynecological HistoryNo gynecological history recorded. Obstetrics History GPAL:G 0 P 0 0 0 0 Immunizations Vaccine Type Date Status Note Provider Nam e and Address Organization Details Recorded Time Tdap 05/17/2011 completed Not Available [facility] 07/15/2022 02:32:18 Hep A, adult 10/06/2013 completed Not Available [facility] 07/15/2022 02:32:18 Hep A, adult 04/10/2013 completed Not Available [facility] 07/15/2022 02:32:18 Past Encounters Encounter ID Performer Location Encounter Start Date Encounter Closed Date Diagnosis/Indication Diagnosis SNOMED-CT Code Diagnosis ICD10 Code Diagnosis Note [id number] [facility] [address] [place] [address] 08/02/2020 00:00:00 08/02/2020 18:57:31 [id number] [facility] [address] [place] [address] 10/22/2020 00:00:00 10/22/2020 16:51:00 [id number] [facility] [address] [place] [address] 05/12/2021 00:00:00 05/12/2021 16:32:29 [id number] [facility] [address] [place] [address] 09/01/2021 00:00:00 09/01/2021 17:11:55 [id number] [facility] [address] [place] [address] 03/03/2022 00:00:00 03/04/2022 12:36:31 [id number] Ines German MD [facility] [address] [place] [address] 09/28/2022 14:27:26 09/28/2022 15:20:06 Postoperative hypothyroidism 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 continue tirosint 150 mcg daily. She was reminded to take her tirosint on empty stomach with glass of water and wait one hour to eat or have her coffee in morning and up to 4 hours if ever taking any heartburn or reflux medication s to help optimize absorption . Discussed paleo like diet with restrictio n of GMOs to help with energy and to optimize absorption of vitamins and minerals and reduce inflammati on. Family his tory of diabetes mellitus 136695353 Z83.3 send for fasting a1c and insulin to screen for prediabete s/insulin resistance . Vitamin B1 2 deficiency (non anemic) 51011176 E53.8 continue B12 supplement ation. Iron defic iency anemia 43970335 D50.9 continue ferrous sulfate 65 mg daily. Loss of hair [id number] L 65.9 send for full hormone panel to screen for hyperandro genism and screen for perimenopa usal changes. Spent up to 28 minutes preparing to see the patient (eg, review of tests), obtaining and/or reviewing separately obtained history, performing a medically appropriat e examinatio n and evaluation , counseling and educating the patient, ordering medication s, tests, along with documentin g clinical informatio n in the electronic health record, independen tly interpreti ng results and communicat ing results to the patient. RTC in 4-6 months. Patient was provided a handwritte n lab order which contains our fax number. If she chooses to go outside of the [facility] system to obtain labwork she was advised to provide our fax number and my informatio n to the lab she will be obtaining labwork from in order to have her labs properly forwarded over for me to review so there is no loss of follow up due to use of outside network. She was also advised to contact our clinic informing us that she has completed her labwork so we are aware we will need to reach out to the appropriat e laboratory to request her results be forwarded to us so I might have the ability to review and make further medical decision making in her case. She voiced understand ing. Health Concerns Section Related Observation LastModified by Organization Detai ls LastModified Time None Recorded Concern Status LastModified by Organization Details LastModified Time None Recorded Advance Directives Directive None Recorded Payers Encounter Date Sequence Insurance Name Policy Number Policy Zamudio Covered Member ID Zamudio Member ID Guarantor Name 09/28/2022 1 [employer] [employer] ([employer]) [address] [id number] [employer] [employer] Notes Date Note Type Note Provider Name and Address Organization Details Recorded Time 09/28/2022 text/html 47 yo female com es in for follow up in management of postoperative hypothyroidism, concern for potential hyperglycemia and B12/HI deficiency. last seen in oct at that time we transitioned off generic LT4 to synthroid or tirosint 150 mcg daily depending on insurance coverage. she is taking tirosint 150 mcg daily and she was able to get 3 months for 250$ we continued vitamin D3 2000 IU daily. She doesn't drink water as often as she should. Goes to bathroom three times a day. Doesn't drink enough fluids.due for thyroid u/s but has a lot of insurance copays/deductible hopes to put off if she can. having fatigue labs from 07/04/22:TSH of 0.01 uIU/mlFT4 of 1.3 ng/dLvit D 47 ng/mLFT3 of 4.0 pg/mlTG negativeglucose 115 mg/dLcr normallft uogfrwT06 649 pg/mlfolate normal Ines German MD [address] [facility] [address], [place], [address], [place] - [facility] 09/28/2022 15:24:46 OBGyn Episode No OBEpisode recorded.
== END 2024-07-10 14:57 | disposition home or self-care (01) ==
PROVIDERS: Emergency Provider Nurse Practitioner; PCP Family Medicine
DX: J11.1 Influenza due to unidentified influenza virus with other respiratory manifestations (principal); Z20.822 Contact with and (suspected) exposure to COVID-19; I10 Essential (primary) hypertension; E89.0 Postprocedural hypothyroidism; Z85.850 Personal history of malignant neoplasm of thyroid; Z92.3 Personal history of irradiation; F41.9 Anxiety disorder, unspecified; F32.A Depression, unspecified
CPT/HCPCS: 87426; 87804; 99213; G0463